=== PATIENT | female | born 1950 | race Two or more races ===

== ENCOUNTER 2020-07-08 11:58 | Outpatient (REF) | payer MEDICARE, SELFPAY ==
--- NOTE | 2020-07-08 12:06 | MM_ITS ---
EXAMINATION: MM SCREENING DIGITAL BREAST TOMOSYNTHESIS, BILATERAL CLINICAL INFORMATION: Screening. Asymptomatic. The lifetime risk of breast cancer based on the Tyrer-Cuzick Model is 4%. COMPARISON: Mammography: 07/03/2019, 06/20/2018 TECHNIQUE: Digital breast tomosynthesis is performed in both the craniocaudal and mediolateral oblique views along with computer-aided detection (CAD). Synthesized 2D images are generated from the tomosynthesis. FINDINGS: The breasts are almost entirely fatty (ACR BI-RADS breast composition Category a). There are no significant masses, abnormal calcifications, or other abnormalities. Parenchymal pattern is similar to prior studies. Background stromal densities are stable. No significant changes. IMPRESSION: No mammographic evidence of malignancy. ASSESSMENT: BI-RADS 1: Negative RECOMMENDATION: Routine annual mammography screening. This patient's information was entered into a reminder system with a target due date for their next mammogram.
== END 2020-07-08 11:59 | disposition home or self-care (01) ==
LOC: HO.MAMMO 11:58
PROVIDERS: PCP Internal Medicine; Visit Provider Internal Medicine
DX: Z12.31 Encounter for screening mammogram for malignant neoplasm of breast (principal)
CPT/HCPCS: 77063; 77067; 78014

== ENCOUNTER 2020-12-21 07:02 | Day surgery (SDC) | payer MEDICARE, MEDICAID, SELFPAY ==
[2020-10-27 10:29] VITALS: BMI 32.1
--- NOTE | 2020-11-01 08:36 | HO.ANESPROP2 ---
HPI - Anesthesia Eval Consult details Narrative: 70yo F for Colonoscopy PMFSH Past Medical History Medical History (Updated 11/01/20 @ 08:37 by Tianna Todd) Anxiety Depression Diabetes mellitus Elevated cholesterol GERD (gastroesophageal reflux disease) HTN (hypertension) Osteoarthritis Osteoporosis Peripheral neuropathy Family History Family History (Updated 09/06/20 @ 11:10 by Michelle Hinojosa CMA) Father No problems noted. Mother No problems noted. Surgical History Surgical History (Updated 09/06/20 @ 11:09 by Michelle Hinojosa CMA) History of colonoscopy Hx of cholecystectomy Hx of endoscopy Social History Social History (Updated 10/27/20 @ 10:29 by Kristie Zamora) Alcohol intake: never Smoking Status: Never smoker Meds Allergies Allergy/AdvReac Type Severity Reaction Status Date / Time metronidazole Allergy Unknown Unknown Verified 10/27/20 10:29 Home Medications Medication Instructions Recorded Confirmed Type acetaminophen 325 mg capsule 650 mg PO Q6H PRN 09/06/20 10/27/20 History calcium carbonate 500 mg (1,250 1 tab PO DAILY 09/06/20 10/27/20 History mg)-vitamin D3 200 unit tablet glipizide 10 mg tablet 20 mg PO BID tab 09/06/20 10/27/20 History hydroxyzine HCl 50 mg tablet 50 mg PO BID 09/06/20 10/27/20 History insulin detemir U-100 100 unit/mL 34 unit SUBCUT BEDTIME ml 09/06/20 10/27/20 History (3 mL) subcutaneous pen lisinopril 20 2 tab PO DAILY tab 09/06/20 10/27/20 History mg-hydrochlorothiazide 12.5 mg tablet montelukast 10 mg tablet 10 mg PO BEDTIME 09/06/20 10/27/20 History pioglitazone 15 mg tablet 15 mg PO DAILY 09/06/20 10/27/20 History Exam Exam Date and Time: November 01, 2020 0836 Height,Weight and Vital Signs: Height 5 ft 1 in Weight 77.111 kg Assessment and Plan Assessment Anesthesia Assessment: Chart Reviewed
--- NOTE | 2020-12-20 09:35 | HO.ANESPROP2 ---
Documented by User: Tianna Todd 12/20/20 09:36 HPI - Anesthesia Eval Consult details Narrative: 70yo F for Colonoscopy PMFSH Past Medical History Medical History Anxiety Depression Diabetes mellitus Elevated cholesterol GERD (gastroesophageal reflux disease) HTN (hypertension) Osteoarthritis Osteoporosis Peripheral neuropathy Family History Family History Father No problems noted. Mother No problems noted. Surgical History Surgical History History of colonoscopy Hx of cholecystectomy Hx of endoscopy Social History Social History Alcohol intake: never Smoking Status: Never smoker Use of substances other than those prescribed or required for medical reasons: No Advance Directives: No Advance Directives Information Provided: No Advance Directives on File: No Meds Allergies Allergy/AdvReac Type Severity Reaction Status Date / Time metronidazole Allergy Unknown Unknown Verified 10/27/20 10:29 Home Medications Medication Instructions Recorded Confirmed Last Taken Type acetaminophen 325 mg capsule 650 mg PO Q6H PRN 09/06/20 10/27/20 Unknown History calcium carbonate 500 mg (1,250 1 tab PO DAILY 09/06/20 10/27/20 Unknown History mg)-vitamin D3 200 unit tablet glipizide 10 mg tablet 20 mg PO BID tab 09/06/20 10/27/20 Unknown History hydroxyzine HCl 50 mg tablet 50 mg PO BID 09/06/20 10/27/20 Unknown History insulin detemir U-100 100 unit/mL 34 unit SUBCUT BEDTIME ml 09/06/20 10/27/20 Unknown History (3 mL) subcutaneous pen lisinopril 20 2 tab PO DAILY tab 09/06/20 10/27/20 Unknown History mg-hydrochlorothiazide 12.5 mg tablet montelukast 10 mg tablet 10 mg PO BEDTIME 09/06/20 10/27/20 Unknown History pioglitazone 15 mg tablet 15 mg PO DAILY 09/06/20 10/27/20 Unknown History Exam Exam Date and Time: December 20, 2020 0935 Height,Weight and Vital Signs: Height 5 ft 1 in Weight 77.111 kg Assessment and Plan Assessment Anesthesia Assessment: Chart Reviewed Documented by User: Stuart Delgado 12/21/20 08:33 [facility] Past Medical History Medical History Anxiety Depression Diabetes mellitus Elevated cholesterol GERD (gastroesophageal reflux disease) HTN (hypertension) Osteoarthritis Osteoporosis Peripheral neuropathy Family History Family History Father No problems noted. Mother No problems noted. Surgical History Surgical History History of colonoscopy Hx of cholecystectomy Hx of endoscopy Social History Social History Alcohol intake: never Smoking Status: Never smoker Use of substances other than those prescribed or required for medical reasons: No Advance Directives: No Advance Directives Information Provided: No Advance Directives on File: No Meds Allergies Allergy/AdvReac Type Severity Reaction Status Date / Time metronidazole Allergy Unknown Unknown Verified 10/27/20 10:29 Home Medications Medication Instructions Recorded Confirmed Last Taken Type acetaminophen 325 mg capsule 650 mg PO Q6H PRN 09/06/20 10/27/20 Unknown History calcium carbonate 500 mg (1,250 1 tab PO DAILY 09/06/20 10/27/20 Unknown History mg)-vitamin D3 200 unit tablet glipizide 10 mg tablet 20 mg PO BID tab 09/06/20 10/27/20 Unknown History hydroxyzine HCl 50 mg tablet 50 mg PO BID 09/06/20 10/27/20 Unknown History insulin detemir U-100 100 unit/mL 34 unit SUBCUT BEDTIME ml 09/06/20 10/27/20 Unknown History (3 mL) subcutaneous pen lisinopril 20 2 tab PO DAILY tab 09/06/20 10/27/20 Unknown History mg-hydrochlorothiazide 12.5 mg tablet montelukast 10 mg tablet 10 mg PO BEDTIME 09/06/20 10/27/20 Unknown History pioglitazone 15 mg tablet 15 mg PO DAILY 09/06/20 10/27/20 Unknown History Exam Airway Mallampati Class: II TM Dist: >3cm Neck ROM: Full Loose/Missing/Broken Teeth: Yes (Upper front missing, many loose) Heart: [id number] Lungs: cta b/l Assessment and Plan Assessment Anesthesia Assessment: Anesthesia Plan Discussed, PAT Visit and Chart Reviewed Final Anesthetic Review NPO: Yes ASA Class: III Final Preanesthetic Review: No Changes in Pt Med Stat, Meds/Allgs Chart Reviewed, Consent Obtained/Reviewed and Anes Risks/Benef Reviewed Patient Risk: Intermediate Procedure Risk: Low Assessment/Block/Sedation in SS: Assess/Block/Sedation-SS Anesthetic Plan Anesthetic Plan: MAC: and Agree w/ Assess. and Plan Disposition: Standard PACU
[2020-12-21 07:34] LABS: Glucose, Whole Blood 118 mg/dL (60-115)
[2020-12-21 07:38] VITALS: BP 170/71; PULSE 61; RESP 16; TEMP 36.3; O2SAT 98
[2020-12-21] MEDS: Lactated Ringers 1,000 ML 100 ML IVCONT (07:43)
--- NOTE | 2020-12-21 08:42 | P.HPSUR_ITS ---
Pre-Procedural Eval Section B Chief Complaint: screening Details of Present Illness: Colon cancer screening #2 [id number] Covid-19 [place] Relevant Family History (Specify if Yes): No Relevant Social History: None Present Medications: see Short Stay Collaborative assessment Medical History: Significant History (Diabetes, Hypertension, Obesity; Hx of GERD) History of Previous Operations: Relevant previous surgery/procedure and date(s) (2001--colonoscopy-[facility], Diverticulosis; Cholecystectomy) Allergies: Allergies Allergy/AdvReac Type Severity Reaction Status Date / Time metronidazole Allergy Unknown Unknown Verified 10/27/20 10:29 Review of Systems Sugical H&P ROS: Negative: Constitution, Respiratory, Gastrointestinal and Endocrine (Diabetes) and Yes, Specify: Cardiovascular (HTN) Exam Surgical H&P Exam: Normal: HEENT, Normal: Heart, Normal: Lungs and Normal: E xtremities and Significant Findings: Abdomen (central obesity) Plan Diagnosis/Plan: Unchanged I have reviewed the history and physical and performed a pertinent physical examination on my patient. No changes have occurred unless specified.yes
--- NOTE | 2020-12-21 09:17 | PM.OP ---
Brief Operative Note Date of Service: 12/21/20 Pre-op diagnosis: Colon cancer screening Post-op diagnosis: other (Diverticulosis(L side)) Procedure: Colonoscopy Implants: NONE Surgeon: Ira Cleveland MD Anesthesia: MAC (Cuff,DIPLOMATIC COURIER) Estimated blood loss (mL): 0 Pathology: none sent Condition: stable Disposition: PACU
[2020-12-21 09:19] VITALS: BP 152/89; PULSE 55; RESP 20; TEMP 36.7; O2SAT 100
[2020-12-21 09:32] VITALS: BP 149/84; PULSE 56; RESP 16; TEMP 36.7; O2SAT 98
--- NOTE | 2020-12-21 10:03 | W.PM.OPN ---
Operative Note Operative Note Date of Service: 12/21/20 Narrative: Pre-op diagnosis: Colon cancer screening Post-op diagnosis: other (Diverticulosis(L side)) Procedure: Colonoscopy Implants: NONE Surgeon: Ira Cleveland MD Anesthesia: MAC (Cuff,[employer]) FINDINGS: LENARD--Decreased sphincter tone Scope introduced with no difficulty=angulation @ rectosigmoid and sigmoid --mild diverticulosis, Advanced descending, transverse, ascending colon into the cecum. (Mild extrinsic pressure due to left sided looping.) Appendiceal orifice seen, valve well visualized. PREP: GOOD with some areas fair requiring flushing and suctioning. Slow withdrawal good rotational views, no mucosal lesions seen. ARV clear. Estimated blood loss (mL): 0 Pathology: none sent Condition: stable Disposition: PACU PLAN: REPEAT COLON CANCER SCREENING 10 YEARS OR AGE 77.
== END 2020-12-21 10:03 | disposition home or self-care (01) ==
PROVIDERS: PCP Internal Medicine; Visit Provider Internal Medicine Gastroenterology
PROC: 0DJD8ZZ Inspection of Lower Intestinal Tract, Via Natural or Artificial Opening Endoscopic (ICD-10-PCS; CPT 45378; principal; 2020-12-21 08:20)
DX: Z12.11 Encounter for screening for malignant neoplasm of colon (principal); K57.30 Diverticulosis of large intestine without perforation or abscess without bleeding; K21.9 Gastro-esophageal reflux disease without esophagitis; I10 Essential (primary) hypertension; E11.42 Type 2 diabetes mellitus with diabetic polyneuropathy; M81.0 Age-related osteoporosis without current pathological fracture; Z79.4 Long term (current) use of insulin; Z79.899 Other long term (current) drug therapy; Z88.8 Allergy status to other drugs, medicaments and biological substances; Z90.49 Acquired absence of other specified parts of digestive tract
CPT/HCPCS: G0121; 82947

== ENCOUNTER 2021-03-17 13:24 | Emergency (ER) | payer MEDICARE, MEDICAID, SELFPAY ==
--- NOTE | ~2021-03-17 | XR_ITS ---
EXAMINATION: LEFT HAND AND WRIST. CLINICAL INFORMATION: Status post fall fall. COMPARISON: None TECHNIQUE: Left hand/wrist 4 views. FINDINGS: There is loss of PIP and DIP joint space with mild periarticular spurring DIP joint fifth digit. No visible acute fracture, dislocation or subluxation seen. The soft tissues are unremarkable. XR/XR hand wrist LT IMPRESSION: Mild degenerative changes PIP and DIP joints left hand. No visible acute fracture, dislocation or subluxation seen.
[2021-03-17 13:36] VITALS: BP 194/71; PULSE 60; RESP 18; TEMP 36.6; O2SAT 96; BMI 37.0
--- NOTE | 2021-03-17 14:09 | ED.EXTPRO ---
HPI - Extremity Problem General Chief complaint: Extremity Injury, Upper Stated complaint: fall - wrist pain Time Seen by Provider: 03/17/21 13:46 Source: patient Mode of arrival: ambulatory Limitations: no limitations History of Present Illness HPI Narrative: Patient presents to ED for left wrist pain. Patient states she is walking on the sidewalks and they were uneven and she tripped and stretched out her hand to break her fall. Patient denies hitting head or loss of consciousness. Patient denies being on any blood thinners. Patient states wrist pain on movement. patient denies any other trauam. Related Data Home Medications Medication Instructions Recorded Confirmed acetaminophen 325 mg capsule 650 mg PO Q6H PRN 09/06/20 10/27/20 calcium carbonate 500 mg (1,250 1 tab PO DAILY 09/06/20 10/27/20 mg)-vitamin D3 200 unit tablet glipizide 10 mg tablet 20 mg PO BID tab 09/06/20 10/27/20 hydroxyzine HCl 50 mg tablet 50 mg PO BID 09/06/20 10/27/20 insulin detemir U-100 100 unit/mL 34 unit SUBCUT BEDTIME ml 09/06/20 10/27/20 (3 mL) subcutaneous pen lisinopril 20 2 tab PO DAILY tab 09/06/20 10/27/20 mg-hydrochlorothiazide 12.5 mg tablet montelukast 10 mg tablet 10 mg PO BEDTIME 09/06/20 10/27/20 pioglitazone 15 mg tablet 15 mg PO DAILY 09/06/20 10/27/20 Previous Rx's Medication Instructions Recorded bisacodyl 5 mg tablet,delayed 10 mg PO ONCE 1 Days #2 tab 09/06/20 release polyethylene glycol 3350 17 17 g PO ONCE #238 g 09/06/20 gram/dose oral powder naproxen 500 mg PO BID PRN #20 tab 03/17/21 Allergies Allergy/AdvReac Type Severity Reaction Status Date / Time metronidazole Allergy Unknown Unknown Verified 10/27/20 10:29 Review of Systems Review of Systems: Yes all other systems are reviewed and are negative Constitutional: Constitutional: Reports as per HPI and Reports no additional constitutional complaints Eyes: Eyes: Reports as per HPI and Reports no additional eye complaints ENT: Reports system reviewed and no additional complaints, except as documented and Reports as per HPI Cardiovascular: Cardiovascular: Reports as per HPI and Reports no additional cardiovascular complaints Respiratory: Respiratory: Reports as per HPI and Reports no additional respiratory complaints Gastrointestinal: Gastrointestinal: Reports as per HPI and Reports no additional gastrointestinal complaints Genitourinary: Genitourinary: Reports no additional female genitourinary complaints and Reports as per HPI Musculoskeletal: Musculoskeletal: Reports no additional musculoskeletal complaints, Reports as per HPI and Reports arthralgias (left wrist pain) Neurologic: Reports system reviewed and no additional complaints, except as documented and Reports as per HPI Psychiatric: Psychiatric: Reports no additional psychiatric complaints and Reports as per HPI [facility] Past Medical History Medical History Anxiety Depression Diabetes mellitus Elevated cholesterol GERD (gastroesophageal reflux disease) HTN (hypertension) Osteoarthritis Osteoporosis Peripheral neuropathy Surgical History History of colonoscopy Hx of cholecystectomy Hx of endoscopy Family History Family History Father No problems noted. Mother No problems noted. Social History Social History Alcohol intake: never Advance Directives: No Advance Directives Information Provided: Yes Physical Exam Vital Signs: Vital Signs: Last Vital Signs Temp 98 F 03/17/21 13:36 Pulse 60 03/17/21 13:36 Resp 17 03/17/21 14:55 BP 194/71 H 03/17/21 13:36 Pulse Ox 96 03/17/21 13:36 Body Mass Index 37.0 Const: General: cooperative, healthy appearing, comfortable, no acute distress, well developed, alert, awake and Physically active Orientation/consciousness: patient oriented x3 HENMT: Head: Yes normal to inspection, Yes No palpable skull fracture present, Yes normocephalic, Yes atraumatic, No abrasion, No Acrocyanosis present, No Marquez's sign, No contusion, No cranial bruits, No hematoma, No laceration, No occipital foramen tenderness, No palpable skull fracture, No raccoon eyes, No scalp lesion, No scalp tenderness, No Temporal artery tenderness present and No periorbital ecchymosis Eyes: General: appearance normal, both eyes and all related structures Neck: Neck: Yes normal visual inspection, Yes full ROM, Yes no lymphadenopathy, Yes no meningeal signs, Yes trachea midline, Yes supple and No tender Chest: Chest palpation & inspection: normal inspection of the chest and normal palpation of entire chest wall Resp: Effort & Inspection: normal respiratory effort and able to speak in complete sentences Auscultation: clear to auscultation bilaterally Cardio: Jugular venous distension: no JVD Heart sounds: S1 normal heart sound present and S2 normal heart sound present GI: Inspection: Yes normal to inspection and No abdominal wall ecchymosis Palpation (GI): Soft to palpation, not firm, nontender, no guarding and not rigid : General: No CVA tenderness and Yes no CVA tenderness Back/Spine/Pelvis: Back: no CVA tenderness, No CVA tenderness and No back tenderness Skin: General skin exam: no rashes or lesions noted and elasticity normal Neuro: General: patient oriented x3, gait normal, no meningeal signs and CN's II-XI intact bilaterally Cranial nerves: Yes CN's II-XII intact bilaterally Extrem: General: Yes normal to inspection and Yes full ROM Hand/finger images: 1. Ecchymosis and tenderness in the area. Patient able to flex and extend hand but with pain. Negative for obvious deformity. Negative for finger deformity or swelling. Rest of extremity normal. Capillary refills intact. Radial pulse intact. Motor/neuro exam intact. Negative for redness. Psych: Appearance: grossly normal, well kempt and not disheveled Course Course Course Narrative: Patient sent for hand x-ray and given Motrin. Reevaluation(s) Reevaluation #1: X-ray negative for any fractures. Patient was placed in Crescencio wrap and discharged with NSAIDs. Contusion. Wrist sprain Time: 14:41 MDM - Extremity (Nontraumatic) MDM Narrative Medical decision making narrative: Contusion. Wrist sprain Discharge Plan Discharge Clinical Impression: Sprain and strain of wrist, Contusion Patient Disposition: Home, Self-Care Instructions: Contusion in Children (ED), Wrist Sprain (ED) Additional Instructions: Regrese al servicio de urgencias si empeora el dolor de mu?eca / mano, hinchaz?n, enrojecimiento, secreci?n de pus, mal olor, fiebre, escalofr?os, decoloraci?n de los dedos de color sarah azulado, piel caliente, piel fr?a, hinchaz?n de la extremidad superior, dolor de pecho, dificultad para respirar , o cualquier otro s?ntoma preocupante. Prescriptions: New naproxen 500 mg tablet 500 mg PO BID PRN (Reason: pain) Qty: 20 RF: 0 No Action acetaminophen [Tylenol] 325 mg capsule 650 mg PO Q6H PRN (Reason: Pain) RF: 0 calcium carbonate-vitamin D3 [Calcium 500 + D] 500 mg(1,250mg) -200 unit tablet 1 tab PO DAILY RF: 0 montelukast [Singulair] 10 mg tablet 10 mg PO BEDTIME RF: 0 lisinopril-hydrochlorothiazide 20-12.5 mg tablet 2 tab PO DAILY RF: 0 glipizide 10 mg tablet 20 mg PO BID RF: 0 pioglitazone [Actos] 15 mg tablet 15 mg PO DAILY RF: 0 hydroxyzine HCl 50 mg tablet 50 mg PO BID RF: 0 Levemir FlexTouch U-100 Insuln 100 unit/mL (3 mL) insulin pen 34 unit subcut BEDTIME RF: 0 bisacodyl [Dulcolax (bisacodyl)] 5 mg tablet,delayed release (DR/EC) 10 mg PO ONCE 1 Days Qty: 2 RF: 0 polyethylene glycol 3350 [Miralax] 17 gram/dose powder 17 g PO ONCE Qty: 238 RF: 0 Referrals: Nasrin Alvarenga MD [Primary Care Provider] - 2 days ( wrist contusion/ sprain. X-ray negative for fracture) Interventions: ED Discharge Assessment Last Done: 03/17/21 14:56 Discharge Date/Time: 03/17/21 14:56 Print Language: Yoruba
[2021-03-17] MEDS: Ibuprofen 800 MG TABLET PO (14:14)
[2021-03-17 14:55] VITALS: RESP 17
== END 2021-03-17 14:56 | disposition home or self-care (01) ==
PROVIDERS: Emergency Provider Emergency Medicine; PCP Internal Medicine
DX: S63.502A Unspecified sprain of left wrist, initial encounter (principal); S60.212A Contusion of left wrist, initial encounter; E11.9 Type 2 diabetes mellitus without complications; I10 Essential (primary) hypertension; W01.0XXA Fall on same level from slipping, tripping and stumbling without subsequent striking against object, initial encounter; Y93.01 Activity, walking, marching and hiking; Y92.480 Sidewalk as the place of occurrence of the external cause; Y99.9 Unspecified external cause status; Z79.4 Long term (current) use of insulin; Z79.899 Other long term (current) drug therapy
CPT/HCPCS: 73110; 73130; 99283; 99284

== ENCOUNTER 2023-04-17 07:23 | Outpatient (REF) | payer MEDICARE, MEDICAID, SELFPAY ==
--- NOTE | ~2023-04-17 | MM_ITS ---
EXAMINATION: MM SCREENING DIGITAL BREAST TOMOSYNTHESIS, BILATERAL CLINICAL INFORMATION: Screening. Asymptomatic. The lifetime risk of breast cancer based on the Tyrer-Cuzick Model is 4.1%. COMPARISON: Mammography: 07/08/2020, and exams dating back to 2011. TECHNIQUE: Digital breast tomosynthesis is performed in both the craniocaudal and mediolateral oblique views along with computer-aided detection (CAD). Synthesized 2D images are generated from the tomosynthesis. FINDINGS: The breasts are almost entirely fatty (ACR BI-RADS breast composition Category a). There are no significant masses, abnormal calcifications, or other abnormalities. Scattered background stromal and parenchymal densities are stable. The parenchymal pattern is unchanged from prior exams. No findings suspicious for malignancy. MM/MM tomosynthesis screening BI IMPRESSION: No mammographic evidence of malignancy. ASSESSMENT: BI-RADS BI-RADS 1 - Negative RECOMMENDATION: Routine annual mammography screening. 1 year F/U This examination should not preclude the clinical evaluation of a suspicious palpable abnormality. This patient's information was entered into a reminder system with a target due date for their next mammogram.
== END 2023-04-17 07:24 | disposition home or self-care (01) ==
LOC: HO.MAMMO 07:23
PROVIDERS: PCP Internal Medicine; Visit Provider Internal Medicine
DX: Z12.31 Encounter for screening mammogram for malignant neoplasm of breast (principal)
CPT/HCPCS: 77063; 77067

== ENCOUNTER → 2023-04-17 07:45 | Outpatient (BNV) | payer MEDICARE, MEDICAID, SELFPAY | PROVIDERS: PCP Internal Medicine; Visit Provider Radiology Diagnostic Radiology | DX: Z12.31 Encounter for screening mammogram for malignant neoplasm of breast (principal) | CPT/HCPCS: 77063; 77067 ==

== ENCOUNTER 2023-07-03 18:29 | Outpatient (REF) | payer MEDICARE, MEDICAID, SELFPAY ==
[2023-07-03 22:00] LABS: Influenza A PCR NEGATIVE (Negative); Influenza B PCR NEGATIVE (Negative); Resp Syncy Virus RNA Qual PCR NEGATIVE (Negative); SARS COV2 PCR INHOUSE NEGATIVE (Negative)
== END 2023-07-03 18:30 | disposition home or self-care (01) ==
LOC: HO.HHCLNP 18:29
PROVIDERS: Visit Provider Emergency Medicine
DX: R68.89 Other general symptoms and signs (principal); Z11.52 Encounter for screening for COVID-19; Z20.828 Contact with and (suspected) exposure to other viral communicable diseases
CPT/HCPCS: 0241U; 87070; 87086

== ENCOUNTER 2023-09-23 12:07 | Emergency (ER) | payer MEDICARE, MEDICAID, SELFPAY ==
--- NOTE | ~2023-09-23 | XR_ITS ---
EXAMINATION: XR CHEST CLINICAL INFORMATION: Chest pain COMPARISON: Chest 09/18/2019. TECHNIQUE: 2 views of the chest were obtained. FINDINGS: Normal appearance of the cardiomediastinal structures. No effusions or pneumothoraces. Normal pattern of pulmonary vasculature. No focal pulmonary consolidation. Convex rightward curvature of the upper thoracic spine and convex leftward curvature of the lower thoracic spine grossly unchanged compared with 09/18/2019. Cholecystectomy clips. XR/XR chest 2V IMPRESSION: 1. No acute cardiopulmonary abnormalities. Lungs clear. 2. Thoracic scoliosis grossly unchanged compared with 09/18/2019.
--- NOTE | 2023-09-23 12:09 | ECG_ITS ---
Test Reason : CHEST PAIN Blood Pressure : / mmHG Vent. Rate : 061 BPM Atrial Rate : 061 BPM P-R Int : 128 ms QRS Dur : 074 ms QT Int : 400 ms P-R-T Axes : 015 -18 027 degrees QTc Int : 402 ms Normal sinus rhythm Minimal voltage criteria for LVH, may be normal variant ( R in aVL ) Borderline ECG When compared with ECG of 21-FEB-2015 09:46, Nonspecific T wave abnormality no longer evident in Anterolateral leads Referred By: Generic ED Physician Electronically Signed By:BRANDAN CASTAÑEDA MD
[2023-09-23 12:18] VITALS: BP 155/66; PULSE 64; RESP 18; TEMP 36.7; O2SAT 99; BMI 39.0
[2023-09-23 12:53] LABS: IDNOW Serial# 08D9AD1C; Strep A Nucleic Acid Negative (Negative)
[2023-09-23 12:55] LABS: COVID-19 Test Negative (Negative); IDNOW Serial# 58CA691E; IDNOW Serial# 9DB6401D; Influenza A Negative (Negative); Influenza B2 Negative (Negative)
--- NOTE | 2023-09-23 14:47 | ED_ITS ---
HPI - General Adult General Chief complaint: Upper Respiratory Symptoms Stated complaint: Chest pain Time Seen by Provider: 09/23/23 13:47 Source: patient Mode of arrival: ambulatory Limitations: no limitations History of Present Illness HPI narrative: 73 year old female with pmhx significant for GERD, HTN, anxiety, depression, diabetes, presents to the ED today for evaluation of cough x6 days. Cough is productive of white colored sputum. Reports chest discomfort with coughing however denies pain. Denies fever, chills, ear pain, sore throat, shortness of breath, hemoptysis, palpitations, abdominal pain, N/V, diarrhea, constipation, LE swelling or pain. Denies known sick contacts. Denies recent travel or long car rides. Related Data Home Medications Medication Instructions Recorded Confirmed acetaminophen 325 mg capsule 650 mg PO Q6H PRN Pain 09/06/20 10/27/20 (Tylenol) calcium carbonate 500 mg-vitamin 1 tab PO DAILY 09/06/20 10/27/20 D3 5 mcg (200 unit) tablet (Calcium 500 + D) glipizide 10 mg tablet 20 mg PO BID 09/06/20 10/27/20 hydroxyzine HCl 50 mg tablet 50 mg PO BID 09/06/20 10/27/20 insulin detemir U-100 100 unit/mL 34 unit subcut BEDTIME 09/06/20 10/27/20 (3 mL) subcutaneous pen (Levemir FlexTouch U-100 Insulin) lisinopril 20 2 tab PO DAILY 09/06/20 10/27/20 mg-hydrochlorothiazide 12.5 mg tablet montelukast 10 mg tablet 10 mg PO BEDTIME 09/06/20 10/27/20 (Singulair) pioglitazone 15 mg tablet (Actos) 15 mg PO DAILY 09/06/20 10/27/20 Previous Rx's Medication Instructions Recorded bisacodyl 5 mg tablet,delayed 10 mg (2 x 5 mg) PO ONCE 1 day #2 09/06/20 release (Dulcolax (bisacodyl)) tabs polyethylene glycol 3350 17 17 g PO ONCE #238 grams 09/06/20 gram/dose oral powder (Miralax) naproxen 500 mg tablet 500 mg PO BID PRN pain #20 tabs 03/17/21 benzonatate 100 mg capsule 100 mg PO BID PRN cough #20 caps 09/23/23 prednisone 20 mg tablet 20 mg PO DAILY 5 days #5 tabs 09/23/23 Allergies Allergy/AdvReac Type Severity Reaction Status Date / Time metronidazole Allergy Unknown Unknown Verified 10/27/20 10:29 Review of Systems Review of Systems: Constitutional: No fever, chills, fatigue, night sweats, weight changes ENT/Mouth: No ear pain, hearing loss, nasal congestion, sinus pain, rhinorrhea, sore throat Eyes: No eye pain, swelling, redness, vision changes, discharge Cardio: No chest pain, palpitations, RAINES, orthopnea, peripheral edema Pulm: No SOB, +cough, +sputum, No wheezing, dyspnea, hemoptysis GI: No nausea, vomiting, hematemesis, abdominal pain, diarrhea, constipation, hematochezia, melena : No irregular bleeding, dysuria, frequency, urgency, hesitancy, hematuria MSK: No back pain, neck pain, joint pain, myalgias Skin: No lesions, rashes Neuro: No weakness, numbness, paresthesias, LOC, dizziness, headache All other systems reviewed and are negative. [facility] Past Medical History Attestation statement: The following information was validated with the patient. Source: old records reviewed and nursing notes reviewed Medical History Anxiety Depression Diabetes mellitus Elevated cholesterol GERD (gastroesophageal reflux disease) HTN (hypertension) Osteoarthritis Osteoporosis Peripheral neuropathy Surgical History History of colonoscopy Hx of cholecystectomy Hx of endoscopy Family History Family History Father No problems noted. Mother No problems noted. Social History Social History Alcohol intake: never Advance Directives: No Advance Directives Information Provided: Yes Physical Exam ED Vital Signs: Vital Signs - 24 hr 09/23/23 12:18 09/23/23 15:33 Temperature 98.1 F Pulse Rate 64 66 Respiratory Rate 18 22 H Blood Pressure 155/66 H Pulse Oximetry 99 Oxygen Delivery Method Room Air BMI result Body Mass Index 39.0 Vital signs notable for hypertension. Afebrile. Const General: cooperative, healthy appearing, comfortable, no acute distress, alert and awake Orientation/consciousness: patient oriented x3 Limitations: no limitations HENMT Other: + posterior oropharynx without erythema or edema. No tonsillar exudates. No peritonsillar masses. Uvula midline. Controlling secretions and speaking complete sentences. Head: Yes normal to inspection Ears: hearing grossly normal bilaterally, external ears normal, TM's normal bilaterally, EAC's normal, mastoids normal and no periauricular adenopathy General nose exam: Normal external nose present and No nasal discharge present Eyes General: appearance normal, both eyes and all related structures Neck Neck: Yes normal visual inspection, Yes full ROM, Yes no lymphadenopathy and Yes no meningeal signs Resp Other: + bilateral expiratory wheezing Effort & Inspection: normal respiratory effort, able to speak in complete sentences, no respiratory distress, no tripod positioning and no use of accessory muscles Auscultation: clear to auscultation bilaterally Cardio Rate: regular rate Rhythm: regular rhythm Peripheral pulses: radial pulses present GI Inspection: Yes normal to inspection Palpation (GI): Soft to palpation and nontender Skin General skin exam: no rashes or lesions noted Neuro General: patient oriented x3, gait normal, moves all extremities and no meningeal signs Extrem General: Yes normal to inspection Course Course Course Narrative: 1545-- serology negative for COVID, flu, strep throat. Chest x-ray unremarkable. EKG normal. Lungs CTA b/l after albuterol treatment. Patient likely has a viral upper respiratory infection. Will send prednisone to pharmacy along with Praful Dempsey for cough. Antibiotics are not warranted at this time. Discussed worrisome signs and symptoms and when to return to the ED. Patient has remained stable throughout ED visit today. All questions answered at this time. Patient is agreeable with disposition and stable for discharge. Medications Administered Discontinued Medications Generic Name Dose Route Start Last Admin Trade Name Freq PRN Reason Stop Dose Admin Albuterol/Ipratropium 3 ml 09/23/23 15:27 09/23/23 15:33 Albuterol/Iprat 2.5/0.5mg 3 Ml Ampul.Neb INHALE 09/23/23 15:28 3 ml ONCE ONE Administration Medical Decision Making Medical Decision Making MDM Narrative: 73 year old female with pmhx significant for GERD, HTN, anxiety, depression, diabetes, presents to the ED today for evaluation of cough x6 days. Vital signs notable for slight hypertension, otherwise unremarkable. Afebrile. Not hypoxic. Not toxic appearing and in no acute distress. Posterior oropharynx within normal limits. Lungs with bilateral expiratory wheezes. Coughing on exam. No signs of acute respiratory distress. Clinical concern for viral syndrome, pneumonia. Unlikely strep throat, mono, pleural effusion, pneumothorax, pulmonary embolism, [employer], retropharyngeal abscess, epiglottitis. Plan for serology, chest x-ray and re-evaluation. Differential Diagnosis Differential Diagnoses: The differential diagnosis associated with the presentation includes As above. Admission/Observation Not indicated. Lab Data MDM Lab Attestation statement: I reviewed the patient's lab results. As above. Labs: Lab Results 09/23/23 Range/Units 12:28 COVID-19 (ANGEL) Negative (Negative) COVID-19 Clin Com See Note Influenza Type A (NATASHA) Negative (Negative) Influenza Type B (NATASHA) Negative (Negative) Influenza A & B Note See Note S. pyogenes GrpA NATASHA Negative (Negative) Independent Interpretation I performed an independent interpretation of an: EKG and Plain X-Ray Interpretation: EKG showing NSR with a rate of 61 bpm, QT 400, QTC 402, LVH secondary to high blood pressure, no acute ischemic changes or ST elevations. Chest x-ray without consolidation or infiltrate, agree with radiologist's interpretation. Radiology Impression Discussion of test interpretation with radiology: I have reviewed the radiologist's reading. Radiologist Impression: XR chest 2V IMPRESSION: 1. No acute cardiopulmonary abnormalities. Lungs clear. 2. Thoracic scoliosis grossly unchanged compared with 09/18/2019. External Record Review External record reviewed: Inpatient record Prescription Management I considered prescription management with: Other (steroid, antitussive) Chronic Conditions Patient?s care impacted by: Diabetes and Hypertension Social Determinants Patient?s care significantly limited by Social Determinants of Health including: Other Social Determinant of Health Critical Care Time Critical Care Time Critical Care Time: No Discharge Plan Discharge Clinical Impression: Upper respiratory infection Patient Disposition: Home, Self-Care Instructions: Upper Respiratory Infection (ED), Viral Syndrome (ED) Additional Instructions: You tested negative for covid, flu, strep throat. Your chest xray is normal. Your EKG is normal. You received a breathing treatment in ED today. Prednisone is a steroid that has been sent to your pharmacy. Take this for the next 5 days. Tessalon perles have been sent to your pharmacy. Takes these as needed for cough. Please follow-up with your primary care provider. If symptoms persist or worsen please return to the emergency department. The case of an emergency call 911. Prescriptions: New benzonatate 100 mg capsule 100 mg PO BID PRN (Reason: cough) Qty: 20 0RF prednisone 20 mg tablet 20 mg PO DAILY 5 Days Qty: 5 0RF No Action naproxen 500 mg tablet 500 mg PO BID PRN (Reason: pain) Qty: 20 0RF acetaminophen [Tylenol] 325 mg capsule 650 mg PO Q6H PRN (Reason: Pain) calcium carbonate-vitamin D3 [Calcium 500 + D] 500 mg(1,250mg) -200 unit tablet 1 tab PO DAILY montelukast [Singulair] 10 mg tablet 10 mg PO BEDTIME lisinopril-hydrochlorothiazide 20-12.5 mg tablet 2 tab PO DAILY glipizide 10 mg tablet 20 mg PO BID pioglitazone [Actos] 15 mg tablet 15 mg PO DAILY hydroxyzine HCl 50 mg tablet 50 mg PO BID Levemir FlexTouch U100 Insulin 100 unit/mL (3 mL) insulin pen 34 unit subcut BEDTIME bisacodyl [Dulcolax (bisacodyl)] 5 mg tablet,delayed release (DR/EC) 10 mg PO ONCE 1 Days Qty: 2 0RF Rx Instructions: take 2 tabs at noon the day before your colonoscopy polyethylene glycol 3350 [Miralax] 17 gram/dose powder 17 g PO ONCE Qty: 238 0RF Rx Instructions: As directed by gastroenterology department at [facility] Referrals: Nasrin Alvarenga MD [Primary Care Provider] - Interventions: ED Discharge Assessment Last Done: 09/23/23 15:56 Discharge Date/Time: 09/23/23 16:10
[2023-09-23 15:33] VITALS: PULSE 66; RESP 22; O2SAT 100
[2023-09-23] MEDS: Albuterol/Iprat 2.5/0.5MG 3 ML AMPUL.NEB INHALE (15:33)
== END 2023-09-23 16:10 | disposition home or self-care (01) ==
PROVIDERS: Emergency Provider Student in an Organized Health Care Education/Training Program; PCP Internal Medicine
DX: J06.9 Acute upper respiratory infection, unspecified (principal); I10 Essential (primary) hypertension; E11.9 Type 2 diabetes mellitus without complications; Z11.52 Encounter for screening for COVID-19
CPT/HCPCS: 71046; 87502; 87635; 87651; 93005; 94640; 99284

== ENCOUNTER → 2023-09-23 12:09 | Outpatient (BNV) | payer MEDICARE, MEDICAID, SELFPAY | PROVIDERS: Emergency Provider Student in an Organized Health Care Education/Training Program; PCP Internal Medicine; Visit Provider Internal Medicine Cardiovascular Disease | DX: R07.9 Chest pain, unspecified (principal) | CPT/HCPCS: 93010 ==

== ENCOUNTER 2023-11-21 13:44 | Outpatient (REF) | payer MEDICARE, MEDICAID, SELFPAY | END 2023-11-21 13:45 | disposition home or self-care (01) | LOC: HO.HHCLNP 13:44 | PROVIDERS: Visit Provider Internal Medicine | DX: R39.9 Unspecified symptoms and signs involving the genitourinary system (principal) | CPT/HCPCS: 87086; 87147 ==

== ENCOUNTER 2024-05-21 12:06 | Outpatient (REF) | payer MEDICARE, MEDICAID, SELFPAY ==
--- NOTE | ~2024-05-21 | MM_ITS ---
EXAMINATION: MM SCREENING DIGITAL BREAST TOMOSYNTHESIS, BILATERAL CLINICAL INFORMATION: Screening. Asymptomatic. COMPARISON: Mammography: Comparison made with prior available imaging. TECHNIQUE: Digital breast tomosynthesis is performed in both the craniocaudal and mediolateral oblique views along with computer-aided detection (CAD). Synthesized 2D images are generated from the tomosynthesis. FINDINGS: There are scattered areas of fibroglandular density (ACR BI-RADS breast composition Category b). There are no significant masses, abnormal calcifications, or other abnormalities. MM/MM tomosynthesis screening BI IMPRESSION: No mammographic evidence of malignancy. ASSESSMENT: BI-RADS BI-RADS 1 - Negative RECOMMENDATION: Routine annual mammography screening. 1 year F/U This examination should not preclude the clinical evaluation of a suspicious palpable abnormality. This patient's information was entered into a reminder system with a target due date for their next mammogram. Electronically signed by: Giuliana Davis DO 06/18/2024 09:12 PM EDT
== END 2024-05-21 12:07 | disposition home or self-care (01) ==
LOC: HO.MAMMO 12:06
PROVIDERS: PCP Internal Medicine; Visit Provider Internal Medicine
DX: Z12.31 Encounter for screening mammogram for malignant neoplasm of breast (principal)
CPT/HCPCS: 77063; 77067

== ENCOUNTER → 2024-05-21 12:15 | Outpatient (BNV) | payer MEDICARE, MEDICAID, SELFPAY | PROVIDERS: PCP Internal Medicine; Visit Provider Internal Medicine | DX: Z12.31 Encounter for screening mammogram for malignant neoplasm of breast (principal) | CPT/HCPCS: 77063; 77067 ==

== ENCOUNTER 2024-09-23 22:38 | Emergency (ER) | payer MEDICARE, MEDICAID, SELFPAY ==
[2024-09-23 22:46] VITALS: BP 124/51; PULSE 69; RESP 14; TEMP 36.4; O2SAT 96; BMI 37.2
--- NOTE | 2024-09-23 23:54 | ED.FEMALEGU ---
HPI - Female Genitourinary General Chief complaint: Urogenital-Female Stated complaint: ?UTI Time Seen by Provider: 09/23/24 23:55 Source: patient, family and educational specialist Mode of arrival: ambulatory Limitations: no limitations History of Present Illness ED Provider: DR. Brcue HPI Narrative: 74-year-old female walked into the emergency department for evaluation of dysuria and frequency urination since yesterday, associated with chills but no fever, no hematuria, no nausea, no vomiting, no back pain. History of hysterectomy and cholecystectomy last bowel movement was this morning no blood in the urine or the stool. Related Data Home Medications ?Medication ?Instructions ?Recorded ?Confirmed acetaminophen 325 mg capsule 650 mg PO Q6H PRN Pain 09/06/20 10/27/20 (Tylenol) calcium 500 mg (as 1 tab PO DAILY 09/06/20 10/27/20 carbonate)-vitamin D3 5 mcg (200 unit) tablet (Calcium 500 + D) glipizide 10 mg tablet 20 mg PO BID 09/06/20 10/27/20 hydroxyzine HCl 50 mg tablet 50 mg PO BID 09/06/20 10/27/20 insulin detemir U-100 100 unit/mL 34 unit subcut BEDTIME 09/06/20 10/27/20 (3 mL) subcutaneous pen (Levemir FlexTouch U-100 Insulin) lisinopril 20 2 tab PO DAILY 09/06/20 10/27/20 mg-hydrochlorothiazide 12.5 mg tablet montelukast 10 mg tablet 10 mg PO BEDTIME 09/06/20 10/27/20 (Singulair) pioglitazone 15 mg tablet (Actos) 15 mg PO DAILY 09/06/20 10/27/20 Previous Rx's ?Medication ?Instructions ?Recorded bisacodyl 5 mg tablet,delayed 10 mg (2 x 5 mg) PO ONCE 1 day #2 09/06/20 release (Dulcolax (bisacodyl)) tabs polyethylene glycol 3350 17 17 g PO ONCE #238 grams 09/06/20 gram/dose oral powder (Miralax) naproxen 500 mg tablet 500 mg PO BID PRN pain #20 tabs 03/17/21 benzonatate 100 mg capsule 100 mg PO BID PRN cough #20 caps 09/23/23 prednisone 20 mg tablet 20 mg PO DAILY 5 days #5 tabs 09/23/23 cefuroxime axetil 500 mg tablet 500 mg PO BID #20 tabs 09/24/24 phenazopyridine 100 mg tablet 100 mg PO TID #6 tabs 09/24/24 (Pyridium) Allergies Allergy/AdvReac Type Severity Reaction Status Date / Time metronidazole Allergy Unknown Unknown Verified 09/23/24 22:47 Review of Systems Review of Systems: All other systems are reviewed and are negative Constitutional: Reports as per HPI and Reports no additional constitutional complaints Eyes: Reports as per HPI and Reports no additional eye complaints Reports system reviewed and no additional complaints, except as documented Cardiovascular: Reports as per HPI and Reports no additional cardiovascular complaints Respiratory: Reports as per HPI and Reports no additional respiratory complaints Gastrointestinal: Reports as per HPI and Reports no additional gastrointestinal complaints Genitourinary: Reports no additional female genitourinary complaints Musculoskeletal: Reports no additional musculoskeletal complaints Skin/Breast: Reports system reviewed and no additional complaints, except as docu Psychiatric: Reports no additional psychiatric complaints Endocrine: Reports no additional endocrine complaints Hematologic/Lymphatic: Reports no additional hematologic/lymphatic complaints Allergic/Immunologic: Reports no additional allergic/immunologic complaints Reports system reviewed and no additional complaints, except as documented and Reports Abnormal speech present REPLACED BY [facility] Past Medical History Medical History Osteoporosis GERD (gastroesophageal reflux disease) Peripheral neuropathy Osteoarthritis Anxiety Depression Elevated cholesterol HTN (hypertension) Diabetes mellitus Surgical History Hx of cholecystectomy Hx of endoscopy History of colonoscopy Family History Family History Father No problems noted. Mother No problems noted. Social History Social History Alcohol intake: never Advance Directives: No Advance Directives Information Provided: Yes Do you have a plan to hurt others: No Plan Physical Exam Vital Signs: Vital Signs: Last Vital Signs Temp 97.5 F 09/23/24 22:46 Pulse 69 09/23/24 22:46 Resp 14 09/23/24 22:46 BP 124/51 L 09/23/24 22:46 Pulse Ox 96 09/23/24 22:46 O2 Del Method Room Air 09/23/24 22:46 BMI result Body Mass Index 37.2 Vital signs have been reviewed and appear to be correct. Blood pressure elevated. Heart rate normal. Respiratory rate normal. Temperature normal. Oxygen saturation normal. Appearance: Alert. Oriented X3. No acute distress. Head: Normal external exam. Normocephalic. Atraumatic. No Marquez signs noted. No raccoon eyes noted Eyes: PERRLA. EOMI. Conjunctiva and sclera normal. Eyelids normal. ENT: TM's Normal. Pharynx normal. Uvula midline. Moist mucous membranes. No trismus noted. No drooling noted. No muffled voice noted. Neck: Normal inspection. Neck supple. FROM. No adenopathy. Thyroid Normal. No meningeal signs. No neck mass noted. CVS: Normal heart rate and rhythm. Heart sound normal. No murmurs noted. Pulses normal throughout. Respiratory: No respiratory distress. Painless inspiration. Breath sounds normal. No wheezes/rales/rhonchi noted. Chest nontender. No accessory muscle usage noted or decreased air movement noted. Abdomen: Soft and nontender. Bowel sounds normal in all 4 quadrants. No distention noted. No organomegaly noted. No visible injury noted. Back: No CVA tenderness. Full range of motion noted. Skin: Skin warm and dry. Normal skin color. Normal skin turgor. No rashes/lesions/lacerations noted. Extremities: No lower extremity edema. Extremities exhibit normal range of motion. Extremities nontender. Neuro: Oriented X 3. Cranial nerve exam: II-XII are grossly intact No motor deficit. No sensory deficit. Reflexes normal. Course Reevaluation(s) Reevaluation #1: Simple noncomplicated UTI will start the patient on cefuroxime times 10 days and drink plenty of fluids. Time: 00:32 Medical Decision Making Differential Diagnosis Differential Diagnoses: The differential diagnosis associated with the presentation includes (UTI, pyelonephritis, electrolyte derangement, severe anemia.) Admission/Observation Consideration of admission/observation: Escalation of care including admission/observation considered Lab Data MDM Lab Attestation statement: I reviewed the patient's lab results. Labs: Lab Results 09/23/24 Range/Units 23:49 Urine Color Dark Yellow Urine Appearance Turbid Urine pH 5.5 (5.0-9.0) Ur Specific [place] 1.025 (1.005-1.025) Urine Protein 300 (3+) H (Neg-Trace) mg/dL Urine Glucose (UA) Negative (Negative) mg/dL Urine Ketones Trace (Negative) mg/dL Urine Blood Large (3+) H (Negative) Urine Nitrite Positive H (Negative) Ur Leukocyte Esterase Large (3+) H (Negative) Urine RBC >20 H (0-2) /HPF Urine WBC >50 H (0-5) /HPF Urine WBC Clumps Present Ur Squamous Epith Cells 3-5 (0-2) /HPF Urine Bacteria 4+ (None Seen) Hyaline Casts 11-20 (0-2) /LPF Discharge Plan Discharge Clinical Impression: Urinary tract infection Patient Disposition: Home, Self-Care Instructions: Urinary Tract Infection in Women (DC) Prescriptions: New cefuroxime axetil 500 mg tablet 500 mg PO BID Qty: 20 0RF phenazopyridine [Pyridium] 100 mg tablet 100 mg PO TID Qty: 6 0RF No Action naproxen 500 mg tablet 500 mg PO BID PRN (Reason: pain) Qty: 20 0RF benzonatate 100 mg capsule 100 mg PO BID PRN (Reason: cough) Qty: 20 0RF prednisone 20 mg tablet 20 mg PO DAILY 5 Days Qty: 5 0RF acetaminophen [Tylenol] 325 mg capsule 650 mg PO Q6H PRN (Reason: Pain) calcium carbonate-vitamin D3 [Calcium 500 + D] 500 mg(1,250mg) -200 unit tablet 1 tab PO DAILY montelukast [Singulair] 10 mg tablet 10 mg PO BEDTIME lisinopril-hydrochlorothiazide 20-12.5 mg tablet 2 tab PO DAILY glipizide 10 mg tablet 20 mg PO BID pioglitazone [Actos] 15 mg tablet 15 mg PO DAILY hydroxyzine HCl 50 mg tablet 50 mg PO BID Levemir FlexTouch U100 Insulin 100 unit/mL (3 mL) insulin pen 34 unit subcut BEDTIME bisacodyl [Dulcolax (bisacodyl)] 5 mg tablet,delayed release (DR/EC) 10 mg PO ONCE 1 Days Qty: 2 0RF Rx Instructions: take 2 tabs at noon the day before your colonoscopy polyethylene glycol 3350 [Miralax] 17 gram/dose powder 17 g PO ONCE Qty: 238 0RF Rx Instructions: As directed by gastroenterology department at [facility] Referrals: Nasrin Alvarenga MD [Primary Care Provider] - Print Language: Wolof
[2024-09-24 00:20] LABS: Appearance Urine Turbid; Color Urine Dark Yellow; Glucose Urine UA Negative (Negative); Leukocyte Esterase Urine Large (3+) (Negative); Nitrite Urine Positive (Negative); PH 5.5 (5.0-9.0); Specific Gravity - Urine 1.025 (1.005-1.025); UMIC TRIGGER UACC YES; Urine Blood Large (3+) (Negative); Urine Ketones Trace mg/dL (Negative); Urine Protein 300 (3+) mg/dL (Neg-Trace)
[2024-09-24 00:29] LABS: Bacteria Urine 4+ (None Seen); RBC Urine >20 /HPF (0-2); UACC Culture Trigger YES; WBC Clumps Urine Present; WBC Urine >50 /HPF (0-5)
[2024-09-24 00:54] VITALS: BP 146/61; PULSE 65; RESP 16; TEMP 37.1; O2SAT 99
[2024-09-24] MEDS: cefuroxime axetiL 500 MG TABLET PO (01:19)
[2024-09-24 01:29] VITALS: BP 146/61; PULSE 65; RESP 16; TEMP 37.1; O2SAT 99
== END 2024-09-24 01:30 | disposition home or self-care (01) ==
PROVIDERS: Emergency Provider Emergency Medicine; PCP Internal Medicine
DX: N39.0 Urinary tract infection, site not specified (principal); R30.0 Dysuria; E11.9 Type 2 diabetes mellitus without complications; Z79.899 Other long term (current) drug therapy; Z79.4 Long term (current) use of insulin
CPT/HCPCS: 81001; 87086; 99283; 99284

== ENCOUNTER 2024-12-11 14:49 | Outpatient (REF) | payer MEDICARE, MEDICAID, SELFPAY ==
[2024-12-11 16:56] LABS: Alanine Aminotransferase 26 U/L (0-31); Albumin Level 3.9 g/dL (3.5-5.0); Alkaline Phosphatase 92 U/L (39-117); Anion Gap 12 (12-20); Aspartate Amino Transferase 40 U/L (5-31); Bilirubin Direct 0.1 mg/dL (0.0-0.5); Bilirubin Total 0.3 mg/dL (0.0-1.0); Blood Urea Nitrogen 37 mg/dL (9-16); Calcium 9.7 mg/dL (8.4-10.2); Carbon Dioxide 26 mmol/L (22-29); Chloride 107 mmol/L (96-108); Cholesterol 105 mg/dL (<200); Estimated Glomerular Filt Rate 42; Glucose Random 227 mg/dL (60-115); HDL Cholesterol 44 mg/dL (>40); LDL Cholesterol Calculated 41 mg/dL (<100); Potassium 5.1 mmol/L (3.3-5.1); Sodium 140 mmol/L (135-145); Total Protein 8.1 g/dL (6.5-8.0); Triglycerides 104 mg/dL (<150)
--- OUTSIDE RECORDS SUMMARY | 2024-12-11 18:35 | XMS_ITS | Encounter Summary ---
Author Organization [facility] Address [address] [place] [address] Care Team Providers Care Personal Care Worker Name Role Phone Nasrin Alvarenga MD Primary Care Provide r Encounter Details Date Type Department Care Team ([facility] Contact Info) Description 02/28/2023 Orders Only [facility] [address] [place], [place] [phone] Tati Sampson LPN Social History Tobacco Use Types Packs/Day Years Used Date Smoking Tobacco: Never Passive Smoke Exposure: Never Smokeless Tobacco: Never Alcohol Use Standard Drinks/Week Comments Never 0 (1 standard drink = 0.6 oz pur e alcohol) Depression Answer Date Recorded Patient Health Questionnaire-9 Score 0 12/29/2022 Depression Answer Date Recorded Patient Health Questionnaire-2 Score 0 12/29/2022 Comments Unknown Sex and Gender Information Value Date Recorded Sex Assigned at Female 07/31/2022 10:14 AM EDT Legal Sex Female 10:14 AM EDT Gender Identity Female 07/31/2022 10:14 AM EDT Sexual Orientation Straight 07/31/2022 10 :14 AM EDT documented as of this encounter Plan of Treatment Upcoming Encounters Date Type Department Care Team ([facility] Contact Info) Description 01/20/2025 1:30 PM EDT Office Visit [facility] AD[facility] [address], [place] [phone] Efren Atkins DDS [address] [place] [address] 02/05/2025 2:30 PM EDT Office Visit [facility] MEDIC[facility] [address], [place] [phone] Nasrin Alvarenga MD [address] [place] [address] 02/24/2025 11:00 AM EDT Office Visit [facility] [address] [place] [address] Marita Quiroga documented as of this encounter Visit Diagnoses Not on filedocumented in this encounter Additional Health Concerns Assessment Noted Time PHQ-9 Depression Total Score: 0 12/30/19 23 11:42 AM EDT documented as of this encounter Care Teams Personal Care Worker Relationship Specialty Start Date End Date Nasrin Alvarenga MD [address] [place] [address] PCP - General Family Medicine 07/24/19 documented as of this encounter
--- OUTSIDE RECORDS SUMMARY | 2024-12-11 18:35 | XMS_ITS | Clinical Summary ---
Author Organization [employer] Address [address] [place] [address] Care Team Providers Care Service Mechanic Name Role Phone Nasrin Alvarenga MD Primary Care Provide r Allergies Active Allergy Reactions Criticality Noted Date Comments Metronidazole Unknown 10/24/2010 Medications Blood Pressure Monitor kitIndications:Es sential hypertension Use as directed 3x/week 1 kit 03/09/20 23 Active dicyclomine (Bentyl) 10 MG capsuleIndication s:Diverticul disease small and large intestine, no perforati or abscess TAKE 1 CAPSULE BY MOUTH THREE TIMES DAILY 90 capsule 1 06/11/20 23 Active dulaglutide (Trulicity) 3 MG/0.5ML solution pen-injectorIndic ations:Type 2 diabetes mellitus without complication, without long-term current use of insulin (CMS/HCC) Inject 3 mg under the skin 1 (one) time per week. 4 each 11/21/19 24 Active insulin glargine (Lantus SoloStar) 100 UNIT/ML penIndications:Ty pe 2 diabetes mellitus without complication, without long-term current use of insulin (CMS/HCC) Inject 30 Units under the skin in the morning. 3 mL 11/21/19 24 Active Novofine Pen Needle 32G X 6 MM misc USE DIRECTED ONCE DAILY WITH INSULIN 100 each 12/18/19 24 Active insulin degludec (Tresiba FlexTouch) 100 UNIT/ML injectionIndicati ons:Type 2 diabetes mellitus without complication, with long-term current use of insulin (CMS/HCC) Inject 30 Units under the skin in the morning. 9 mL 12/21/19 24 025 Active glucose blood (FREESTYLE LITE) test stripIndications: Type 2 diabetes mellitus without complications (CMS/HCC) TEST BLOOD SUGAR THREE TIMES DAILY 100 strip 11 12/24/19 24 Active TRUEplus Lancets 33G miscIndications:T ype 2 diabetes mellitus without complications ([facility]) TEST BLOOD SUGAR THREE TIMES DAILY 100 each 12/24/19 24 Active Continuous Glucose Flight Information Expediter (FreeStyle Dany 2 Pompey) deviceIndications :Type 2 diabetes mellitus with hyperglycemia, with long-term current use of insulin ([facility]) Scan sensor every 8 hours 1 each 2 02/06/20 24 Active glucose blood (FreeStyle Precision Henry Test) test stripIndications: Type 2 diabetes mellitus with hyperglycemia, with long-term current use of insulin ([facility]) Use to test blood sugar 2 times daily 100 each 12 02/06/20 24 025 Active pravastatin (Pravachol) 40 MG tabletIndications :Essential hypertension Take 1 tablet (40 mg) by mouth Once per day. 30 tablet 02/06/20 24 025 Active pioglitazone (Actos) 30 MG tabletIndications :Type 2 diabetes mellitus with hyperglycemia, with long-term current use of insulin ([facility]) TAKE 1 TABLET BY MOUTH EVERY MORNING 30 tablet 03/24/20 24 Active amLODIPine (Norvasc) 5 MG tabletIndications :Essential (primary) hypertension TAKE 1 TABLET BY MOUTH EVERY MORNING 30 tablet 05/21/20 24 Active Continuous Glucose Sensor (FreeStyle Dany 2 Sensor) miscIndications:T ype 2 diabetes mellitus with hyperglycemia, with long-term current use of insulin ([facility]) USE DIRECTED. CHANGE EVERY 14 DAYS 2 each 2 07/09/20 24 Active lisinopril-hydroC HLOROthiazide 20-12.5 MG tablet TAKE 2 TABLETS BY MOUTH ONCE DAILY IN THE MORNING 180 tablet 1 07/16/20 24 Active Ozempic, 0.25 or 0.5 MG/DOSE, 2 MG/3ML solution pen-injectorIndic ations:Type 2 diabetes mellitus with hyperglycemia, with long-term current use of insulin ([facility]) INJECT 0.5 MG SUBCUTANEOUSLY EVERY 7 DAYS IN THE ABDOMEN, THIGHS, OR UPPER ARM, ROTATE INJECTION SITES. 3 mL 3 09/03/20 24 Active Active Problems Problem Noted Date Diagnosed Date UTI symptoms 11/21/2023 Assessment & Plan (11/21/2023 3:48 PM EST): UA and culture Bactrim for 3 days Encounter for screening mamm ogram for malignant neoplasm of breast 03/09/2023 Type 2 diabetes mellitus wit h hyperglycemia, with long-term current use of insulin 12/29/2022 Assessment & Plan (02/06/2024 12:37 PM EDT): Diabetes is: not controlled - Lab Results Component Value Date HGBA1C 9.4 (A) 02/06/2024 HGBA1C 9.9 (A) 09/04/2023 HGBA1C 10.6 (A) 03/09/2023 - Lab Results Component Value Date MICROALBUR 1.0 11/26/2020 CREATININE 1.18 (H) 01/11/2023 -Changes: I will prescribe CGM for a better idea of her glucose levels through out the day and better adjustment of her insulin and medications - Diabetic eye exam: - Diabetic foot exam: - Continue lifestyle modifications - Trulicity 3mg was discontinue and I started her on ozempic 0.5mg weekly I believe this will be very beneficial for her - Follow up: 3 months Assessment & Plan (03/09/2023 1:26 PM EDT): extensive counseling done I discontinue jardiance and I went up on her trulicity and pioglitazone Log glucose RTC 3 months Assessment & Plan (12/29/2022 1:58 PM EDT): A1c today 11 and glucose 363 - Lab Results Component Value Date HGBA1C 9.5 (H) 11/26/2020 -I ordered today BMP, microalbuminuria, lipid panel - Diabetic eye exam: referral done today - Diabetic foot exam: pending on next appointment - Continue lifestyle modifications -I added today to her medications jardiance 10mg daily and advise to log her glucose for next appointment and bring all her medications -extensive discussion about life style modifications done today Diverticul disease small and large intestine, no perforati or abscess 12/29/2022 Assessment & Plan (12/29/2022 1:58 PM EDT): Tral of bentyl prescribed today Increased frequency of urination 12/27/2022 Essential hypertension 12/27/2022 Assessment & Plan (02/06/2024 12:34 PM EDT): I discontinue atorvastatin and started her on pravastatin take medication every day - Aerobic exercise to reduce BP. Initial goal of 30 min walk 3-5x/week. Increase as tolerated. - low-sodium diet (goal: <2g/day) and heart healthy diet such as DASH to reduce BP and prevent ASCVD. - Home BP monitoring 1-2 x day with goal of <140/90. - Seek immediate medical attention for chest pain, palpitations, SOB, syncope, or sudden changes in mental status. - Do not change or discontinue current prescriptions without first consulting health care provider Assessment & Plan (11/21/2023 3:47 PM EST): Maintenance: BMP: will be order on next appointment Lipid Panel: will be order on next appointment ASCVD Risk: high risk I started her today atorvastatin 20mg daily I will check her labs on next appointment - Aerobic exercise to reduce BP. Initial goal of 30 min walk 3-5x/week. Increase as tolerated. - low-sodium diet (goal: <2g/day) and heart healthy diet such as DASH to reduce BP and prevent ASCVD. - Home BP monitoring 1-2 x day with goal of <140/90. - Seek immediate medical attention for chest pain, palpitations, SOB, syncope, or sudden changes in mental status. - Do not change or discontinue current prescriptions without first consulting health care provider Assessment & Plan (12/29/2022 1:55 PM EDT): Maintenance: BMP: ordered today Lipid Panel: ordered today - Aerobic exercise to reduce BP. Initial goal of 30 min walk 3-5x/week. Increase as tolerated. - low-sodium diet (goal: <2g/day) and heart healthy diet such as DASH to reduce BP and prevent ASCVD. - Home BP monitoring 1-2 x day with goal of <140/90. - Seek immediate medical attention for chest pain, palpitations, SOB, syncope, or sudden changes in mental status. 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 levemir to lantus and instead of at night I put her on 30 units in the morning - Diabetic eye exam:up to date - Diabetic foot exam:pending - Continue lifestyle modifications - Follow up: 3 months Peripheral neuropathy 02/25/2014 Mixed anxiety and depressive disorder 02/25/2014 Osteoarthritis 09/03/2012 Hyperlipidemia 09/03/2012 Gastroesophageal reflux disease 09/03/2012 Hypertension 09/03/2012 Assessment & Plan (03/09/2023 1:27 PM EDT): New BP kit prescribed I advise low Na diet I added amlodipine 2.5mg RTC 2 weeks with nurse then 3 months with me Osteoporosis 04/26/2012 Obesity 04/26/2012 Constipation 04/26/2012 Carpal tunnel syndrome 04/26/2012 Encounters Date Type Department Care Team Description 12/05/2024 Telephone [facility] OPT[facility] [address] [place] [address] Annika Fagan, OD 09/29/2024 Telephone [facility] MEDICINE [address] [place] [address] Belem Brar RN Med B form from Last 3 Months Immunizations Name Administration Dates Next Due Influenza High-dose Quadriva lent Preservative Free 06/28/2022,06/01/2022,07/28/2020 Influenza injectable quadriv alent preservative free 11/21/2023,10/18/2021,10/15/2018,05/09,08/01/2016 Influenza, High Dose Seasona l, Preservative Free 06/19/2019,07/01/2018 Influenza, trivalent, adjuvanted 06/11/2018 Oumou SARS-CoV-2 Vaccination 01/08/2021 Moderna Covid-19 Vaccine 12+ 01/20/2021 Pfizer Covid-19 Vaccine 12+ 11/21/2023 Pfizer Covid-19 Vaccine 12+ Bivalent 07/06/2022 Pneumococcal Conjugate PCV 13 11/25/2018 Pneumococcal Conjugate PCV 20 03/09/2023 Pneumococcal Polysaccharide PPSV23 11/21/2016, TD (adult), 2 Lf tetanus tox oid, preservative free, adsorbed 01/12/2006,08/04/1996 Tdap 01/29/2012 Zoster, Recombinant 09/04/2023,11/25/2018 Zoster, live 05/29/2014 Family History Medical History Relation Name Comments Throat cancer Other Relation Name Status Comments Other Social History Tobacco Use Types Packs/Day Years Used Date Smoking Tobacco: Never Passive Smoke Exposure: Never Smokeless Tobacco: Never Tobacco Cessation:Counseling Given: Not Answered Alcohol Use Standard Drinks/Week Comments Never 0 (1 standard drink = 0.6 oz pur e alcohol) Depression Answer Date Recorded Patient Health Questionnaire-9 Score 0 12/29/2022 Housing Stability Answer Date Recorded What is your housing situation today? I have grantmarie nelson 07/17/[address] you li ve. Do you have problems with any of the following? None of the above 07/17/2023 Food Insecurity Answer Date Recorded Within the past 12 months, y ou worried that your food would run out before you got money to buy more: Often true 11/09/2023 Within the past 12 months,th e food you bought just didn't last and you didn't have enough money to get more: Often true 06/2024 Transportation Answer Date Recorded In the past 12 months, has l ack of transportation kept you from medical appts, meetings, work or from getting things needed for daily living? No 07/17/2023 Utilities Answer Date Recorded In the past 12 months, has t he electric, gas, oil or water company threatened to shut off services in your home? No 07/17/2023 Depression Answer Date Recorded Patient Health Questionnaire-2 Score 0 12/29/2022 Comments Unknown Sex and Gender Information Value Date Recorded Sex Assigned at Female 07/31/2022 10:14 AM EDT Legal Sex Female 10:14 AM EDT Gender Identity Female 07/31/2022 10:14 AM EDT Sexual Orientation Straight 07/31/2022 10 :14 AM EDT Last Filed Vital Signs Vital Sign Reading Time Taken Comments Blood Pressure 138/84 02/28/2024 8:12 AM EDT Pulse 72 02/06/2024 10:34 AM EDT Temperature 36.7 ??C (98 ??F) 02/06/2024 10:34 AM EDT Respiratory Rate 17 02/06/2024 10:34 AM EDT Oxygen Saturation 98% 11/21/2023 10:16 AM EST Inhaled Oxygen Concentration - - Weight 88.3 kg (194 lb 9.6 oz) 02/06/2024 10:34 AM EDT Height 154.9 cm (5' 1 ) 02/06/2024 10:34 AM EDT Body Mass Index 36.77 02/06/2024 10:34 AM EDT Plan of Treatment Upcoming Encounters Date Type Department Care Team (Late st Contact Info) Description 01/20/2025 1:30 PM EDT Office Visit [facility] ADULT DENTAL [address] [place] [address] Efren Atkins DDS [address] [place] [address] 02/05/2025 2:30 PM EDT Office Visit [facility] MEDICINE [address] [place] [address] Nasrin Alvarenga MD [address] [place] [address] 02/24/2025 11:00 AM EDT Office Visit [facility] [address] [place] [address] Marita Quiroga Health Maintenance Due Date Last Done Comments CT Colonography 1950 FIT DNA/Cologuard 1950 FIT 1950 FOBT 1950 Sigmoidoscopy 1950 Alcohol/Substance Use Screening 1964 Hepatitis C Screening 1970 DTaP/Tdap/Td Vaccines (2 - Td or Tdap) 01/28/2022 01/29/2012, 01/12/2006, 08/04/1996 Depression Screening 12/30/2023 12/29/2022, 12/30/19 Diabetes: Urine Protein Screening 01/12/2024 01/11/2023, 11/26/2020 Lipid Panel 01/12/2024 12/11/2024, 12/30, 08/09/2020 Diabetes: Foot Exam 03/09/2024 03/09/2023, Diabetes: Hemoglobin A1C 05/08/2024 024, 09/04/2023, 03/09/2023, Additional history exists COVID-19 Vaccine ( season) 2024 11/21/2023, 07/06/2022, 05/23/2022, Additional history exists Influenza Vaccine (#1) 2024 , 06/28/2022, 06/01/2022, Additional history exists Dental Prophylaxis 08/31/2024 02/28/2024, 1 11/21/2020, 04/06/2015 SDOH Screening 11/09/2024 11/09/2023 Dental Oral Exam 12/16/2024 06/17/2024, 10/09/2008 Dental X-Ray: Bitewings 02/28/2025 02/28/2024, 12/23 Mammogram 05/21/2025 05/21/2024, 03/31, 07/08/2020, Additional history exists Tobacco Screening 06/17/2025 06/17/2024 Eye Exam 06/18/2025 06/18/2023, 06/01, 06/18/2023, Additional history exists Dental X-Ray: Full Mouth 06/18/2027 06/17/2024, 11/30 RSV Patients and Patients Aged 60 years or older (1 - 1-dose 75+ series) 2027 Colonoscopy 12/21/2030 12/21/2020 Colorectal Cancer Screening 12/21/2030 Pneumococcal Vaccine: 50+ Years Completed 03/09/2023, 11/25/2018, 11/21/2016, Additional history exists Zoster Vaccines Completed 09/04/2023, 11/02, 05/29/2014 HIB Vaccines Aged Out No longer eligi ble based on patient's age to complete this topic HPV Vaccines Aged Out No longer eligi ble based on patient's age to complete this topic Hepatitis A Vaccines Aged Out No long er eligible based on patient's age to complete this topic Hepatitis B Vaccines Aged Out No long er eligible based on patient's age to complete this topic IPV Vaccines Aged Out No longer eligi ble based on patient's age to complete this topic Meningococcal Vaccine Aged Out No jordan arcelia eligible based on patient's age to complete this topic RSV under 20 months Aged Out No longe r eligible based on patient's age to complete this topic Rotavirus Vaccines Aged Out No longer eligible based on patient's age to complete this topic Goals Goal Patient Goal Type Associated Problems Recent Progress Patient-Stated? Author Blood Pressure < 140/90 Blood Pressure 138/84(2023 8:12 AM EDT) No Davin Duckworth PharmD Hemoglobin A1c < 7 Result Component 9.4( 10:43 AM EDT) No Davin Duckworth PharmD Procedures Procedure Name Priority Date/Time Associated Diagnosis Comments HEPATIC FUNCTION PANEL Routine 5 2:51 PM EDT Essential hypertension Type 2 diabetes mellitus with hyperglycemia, with long-term current use of insulin ([facility]) LIPID PANEL, STANDARD Routine 12/11/2024 2:51 PM EDT Essential hypertension Type 2 diabetes mellitus with hyperglycemia, with long-term current use of insulin ([facility]) BASIC METABOLIC PANEL Routine 12/11/2024 2:51 PM EDT Essential hypertension Type 2 diabetes mellitus with hyperglycemia, with long-term current use of insulin ([facility]) CULTURE, URINE, ROUTINE Routine 09/24/2024 12:00 AM EST URINALYSIS, COMPLETE, WITH REFLEX TO CULTURE Routine 09/23/2024 11:49 PM EST PANORAMIC RADIOGRAPHIC IMAGE Routine 06/17/2024 11:00 AM EDT Encounter for dental examination Periodontal disease Malocclusion PERIODIC ORAL EVALUATION - ESTABLISHED PATIENT Routine 06/17/2024 11:00 AM EDT Encounter for dental examination Periodontal disease Malocclusion BI MAMMOGRAM SCREENING TOMOSYNTHESIS BILATERAL Routine 05/21/2024 12:15 PM EDT Full PROPHYLAXIS - ADULT Routine 02/28/2024 8:00 AM EDT Subgingival dental calculus Dental plaque BITEWINGS - 4 RADIOGRAPHIC IMAGES Routine 02/28/2024 8:00 AM EDT POCT GLYCATED HEMOGLOBIN, TOTAL Routine 02/06/2024 10:43 AM EDT Type 2 diabetes mellitus with hyperglycemia, with long-term current use of insulin ([facility]) ALBUMIN, RANDOM URINE W/O CREATININE Routine 01/11/2023 8:53 AM EDT Essential hypertension Type 2 diabetes mellitus with hyperglycemia, with long-term current use of insulin ([facility]) HM COLONOSCOPY Routine 12/21/2020 from Last 3 Months or Most Recently Relevant to Health Maintenance Results * (ABNORMAL) Hepatic Function Panel (12/11/2024 2:51 PM EDT) Bilirubin, Total 0.3 0.0 - 1.0 mg/dL [facility] Bilirubin, Direct 0.1 0.0 - 0.5 mg/dL [facility] Aspartate Amino Transferase 40(H) 5 - 31 U/L [facility] Alanine Aminotransferase 26 0 - 31 U/L [facility] Total Protein 8.1(H) 6.5 - 8.0 g/dL [facility] Albumin Level 3.9 3.5 - 5.0 g/dL [facility] Alkaline Phosphatase 92 39 - 117 U/L [facility] Blood Venous blood specimen / Unknown 12/11/2024 2:51 PM EDT 12/11/2024 4:06 PM EDT us Nasrin Haas MD LAB BLOOD ORDERABLES Final Result Performing Organization Address [facility]/ZIP Co de Phone Number [facility] [address] [place] [address] [phone] * Lipid Panel, Standard (12/11/2024 2:51 PM EDT) Triglycerides 104 <150 mg/dL [facility] Comment:Desirable Triglyceri de: less than 150 mg/dLBorderline High Triglyceride 150-199 mg/dLHigh Triglyceride: 200-499 mg/dLVery High Triglyceride: greater than or equal to 5OO mg/dL Cholesterol 105 <200 mg/dL [facility] Comment:Desirable Cholestero l: less than 200 mg/dLBorderline High Cholesterol: 200-239 mg/dLHigh Cholesterol: greater than 239 mg/dL LDL Cholesterol Calculated 41 <100 mg/dL [facility] Comment:Desirable LDL: less than 100 mg/dLNear Optimal/Above Optimal LDL: 110- 129 mg/dLBorderline High LDL: 130-159 mg/dLHigh LDL: 160-189 mg/dLVery High LDL: greater than or equal to 190 mg/dL HDL Cholesterol 44 >40 mg/dL [facility] Comment:Desirable HDL: great er than 40 mg/dL Note: This HDL assay may give artificially low results in patients with liver disease. Blood Venous blood specimen / Unknown 12/11/2024 2:51 PM EDT 12/11/2024 4:06 PM EDT us Nasrin Haas MD LAB BLOOD ORDERABLES Final Result Performing Organization Address City/[facility]/ZIP Co de Phone Number [facility] [address] [place] [address] [phone] * (ABNORMAL) Basic Metabolic Panel (12/11/2024 2:51 PM EDT) Sodium 140 135 - 145 mmol/L [facility] Potassium 5.1 3.3 - 5.1 mmol/L [facility] Chloride 107 96 - 108 mmol/L [facility] Carbon Dioxide 26 22 - 29 mmol/L [facility] Anion Gap 12 12 - 20 [facility] Urea Nitrogen (BUN) 37(H) 9 - 16 mg/dL [facility] Creatinine, Serum 1.25 0.5 - 1.4 mg/dL [facility] Estimated Glomerular Filt Rate 42 [facility] Comment:Chronic Kidney Disea se: Estimated GFR < 60 mL/min/[id number] Kidney Disease: Estimated GFR < 15 mL/min/1.73m2 Glucose 227(H) 60 - 115 mg/dL [facility] Calcium 9.7 8.4 - 10.2 mg/dL [facility] Blood Venous blood specimen / Unknown 12/11/2024 2:51 PM EDT 12/11/2024 4:06 PM EDT us Nasrin Haas MD LAB BLOOD ORDERABLES Final Result Performing Organization Address City/[facility]/ZIP Co de Phone Number [facility] [address] [place] [phone] * Culture, Urine, Routine (09/24/2024 12:00 AM EST) Urine Urine specimen obtained by clean catch procedure / Unknown 09/24/2024 09/24/2024 Comment:UACC Narrative [facility] - 09/26/2024 9:20 AM EST Urine Culture Report Result Urine Culture > 100,000 cfu/ml Urine Culture Mixed bacterial hai characteristic of Urine Culture urogenital contamination. Specimen Source: Urine clean catch us Generic External Data Provider LAB MICROBIOLOGY - GENERAL ORDERABLES Final Result Performing Organization Address City/[facility]/ZIP Co de Phone Number [facility] [address] [place] [address] [phone] * (ABNORMAL) Urinalysis, Complete, with Reflex to Culture (09/23/2024 11:49 PM EST) Color Urine Dark Yellow [facility] Appearance Urine Turbid [facility] PH 5.5 5.0 - 9.0 [facility] Glucose Urine UA Negative Negative mg/dL [facility] Urine Blood Large (3+)(A) Negative [facility] Specific [place] - Urine 1.025 1.005 - 1.025 [facility] Urine Protein 300 (3+)(A) Neg-Trace mg/dL [facility] Urine Ketones Trace Negative mg/dL [facility] Nitrite Urine Positive(A) Negative [facility] Leukocyte Esterase Urine Large (3+)(A) Negative [facility] RBC Urine >20(A) 0 - 2 /HPF [facility] Urine WBC >50(A) 0 - 5 /HPF [facility] WBC CLUMPS, UR Present [facility] Urine Squamous Epithelial Cell 3-5 0 - 2 /HPF [facility] Urine Bacteria 4+ None Seen [facility] Hyaline Casts, Urine 11-20 0 - 2 /LPF [facility] 09/23/2024 11:4 9 PM EST 09/24/2024 12:09 AM EST Narrative [facility] - 09/24/2024 12:30 AM EST [id number], Clean Catch us Generic External Data Provider LAB URINE ORDERAB LES Final Result Performing Organization Address [facility] de Phone Number [facility] [address] [place] [phone] * BI Mammogram Screening Tomosynthesis Bilateral (05/21/2024 12:15 PM EDT) Anatomical Region Laterality Modality Breast Bilateral Mammography 05/21/2024 12:1 5 PM EDT Narrative 06/18/2024 9:15 PM EDT ? [facility] ? [address] ?[place] [address] ? Mammography Report ? Signed ? Patient: Robbie,Connie ?MR#: [id number] ?? [id number] ? : 1950 ?Acct:[id number] ? Age/Sex: 73 / F ?ADM Date: 05/21/24 ? Loc: HO.MAMMO ? Attending Dr: Nasrin Haas MD ? Ordering Physician: Nasrin Alvarenga MD ?Results: ?? 1Negative ? Date of Service: 05/21/24 ?Follow Up: 1 Year From Orig ?? inal Mammogram ? Procedure(s): MM tomosynthesis screening BI ?? Accession Number(s): [id number] ? cc: Nasrin Alvarenga MD ? EXAMINATION: ?? MM SCREENING DIGITAL BREAST TOMOSYNTHESIS, BILATERAL ? CLINICAL INFORMATION: ? Screening. Asymptomatic. ? COMPARISON: ?? Mammography: Comparison made with prior available imaging. ? TECHNIQUE: ?? Digital breast tomosynthesis is performed in both the craniocaudal and ?? mediolateral oblique views along with computer-aided detection (CAD). ? Synthesized 2D images are generated from the tomosynthesis. ? FINDINGS: ?? There are scattered areas of fibroglandular density (ACR BI-RADS breast ?? composition Category b). ? There are no significant masses, abnormal calcifications, or other ?? abnormalities. ? MM/MM tomosynthesis screening BI ?? IMPRESSION: ?? No mammographic evidence of malignancy. ? ASSESSMENT: ? BI-RADS BI-RADS 1 - Negative ? RECOMMENDATION: ?? Routine annual mammography screening. ? 1 year F/U ? This examination should not preclude the clinical evaluation of a ?? suspicious palpable abnormality. ? This patient's information was entered into a reminder system with a ?? target due date for their next mammogram. ? Electronically signed by: ??Giuliana Davis DO ??06/18/2024 09:12 PM EDT ? Dictated By: ?Giuliana Davis DO ? Signed By: ?<Electronically signed by Giuliana Davis, DO in OV> ? 06/18/242111 ? DD/ 1215 ? TD/TT: 05/21/24 1235 ? Casting Molder: ? Procedure Note Samreen, Image - 06/18/2024 Alex [facility] [address] [place], [place] [address] Mammography Report Signed Patient: Anabel Avalos MMR#: [id number] : 2Acct:[id number] Age/Sex: 73 / FADM Date: 05/21/24 Loc: HO.MAMMO Attending Dr: Nasrin Haas MD Ordering Physician: Nasrin Alvarenga MDResults: 1Negative Date of Service: 05/21/24Follow Up: 1 Year From Orig inal Mammogram Procedure(s): MM tomosynthesis screening BI Accession Number(s): [id number] cc: Nasrin Alvarenga MD EXAMINATION: MM SCREENING DIGITAL BREAST TOMOSYNTHESIS, BILATERAL CLINICAL INFORMATION: Screening. Asymptomatic. COMPARISON: Mammography: Comparison made with prior available imaging. TECHNIQUE: Digital breast tomosynthesis is performed in both the craniocaudal and mediolateral oblique views along with computer-aided detection (CAD). Synthesized 2D images are generated from the tomosynthesis. FINDINGS: There are scattered areas of fibroglandular density (ACR BI-RADS breast composition Category b). There are no significant masses, abnormal calcifications, or other abnormalities. MM/MM tomosynthesis screening BI IMPRESSION: No mammographic evidence of malignancy. ASSESSMENT: BI-RADS BI-RADS 1 - Negative RECOMMENDATION: Routine annual mammography screening. 1 year F/U This examination should not preclude the clinical evaluation of a suspicious palpable abnormality. This patient's information was entered into a reminder system with a target due date for their next mammogram. Electronically signed by: Giuliana Davis DO 06/18/2024 09:12 PM EDT RP Dictated By: Giuliana Davis DO Signed By: <Electronically signed by Giuliana Davis DO in OV> 06/18/242 DD/ 1215 TD/TT: 05/21/24 1235 Casting Molder: Nasrin Haas MD IMG BI PROCEDURES Fin al Result * (ABNORMAL) POCT HGB A1C (02/06/2024 10:43 AM EDT) Hemoglobin A1C 9.4(A) 4.0 - 6.0 % Blood 02/06/2024 10:4 3 AM EDT Nasrin Haas MD POINT OF CARE TEST EN TER/EDIT ORDERABLES Final Result * Albumin, Random Urine W/O Creatinine (01/11/2023 8:53 AM EDT) Albumin, Urine 0.7 See Note: mg/dL [facility] Comment: Reference Range: Reference Range Not established MI[facility] Comment: The ADA defines abnormalities in albumin excretion as follows: Albuminuria Category ? Result (mcg/mg creatinine) Normal to Mildly increased ?<30 Moderately increased ?30-299 Severely increased ?> OR = 300 The ADA recommends that at least two of three specimens collected within a 3-6 month period be abnormal before considering a patient to be within a diagnostic category. Urine Urine specimen obtained by clean catch procedure / Unknown 01/11/2023 8:53 AM EDT 01/11/2023 8:54 AM EDT Narrative [facility] - 01/12/2023 1:12 AM EDT FASTING:YES FASTING: YES us Nasrin Haas MD LAB URINE ORDERABLES Final Result [facility] [address], [place] [address] [facility] [address] [place] [address] * Hm Colonoscopy (12/21/2020) Colonoscopy Normal Normal Narrative Heidi Cornell - 12/21/2020 Recommended 10 year follow up Historical Provider HEALTH MAINTENANCE Final Result from Last 3 Months or Most Recently Relevant to Health Maintenance Insurance [facility] [place] [address] [place] [phone] [facility] STANDARD D[facility] MEDICAID STAND ADULT DENTAL [facility] PPO Care Teams Service Mechanic Relationship Specialty Start Date End Date Nasrin Alvarenga MD [address] [place] [phone] PCP - General Family Medicine 07/24/19
--- OUTSIDE RECORDS SUMMARY | 2024-12-11 18:36 | XMS_ITS | Encounter Summary ---
Author Organization [employer] Address [address] [place] [address] Care Team Providers Care Inflated Pad Buffer Name Role Phone Nasrin Alvarenga MD Primary Care Provide r Encounter Details Date Type Department Care Team (Late st Contact Info) Description 12/05/2024 Telephone C OPTOMETRY [address] [place] [address] Rylan Annika, OD [address] [place] [address] Social History Tobacco Use Types Packs/Day Years Used Date Smoking Tobacco: Never Passive Smoke Exposure: Never Smokeless Tobacco: Never Alcohol Use Standard Drinks/Week Comments Never 0 (1 standard drink = 0.6 oz pur e alcohol) Depression Answer Date Recorded Patient Health Questionnaire-9 Score 0 12/29/2022 Housing Stability Answer Date Recorded What is your housing situation today? I have grant nelson 07/17/[address] you [...] 1:30 PM EDT Office Visit [facility] ADULT DENTAL [address] [place], [place] [phone] Efren Atkins DDS [address] [place], [place] [phone] 02/05/2025 2:30 PM EDT Office Visit [facility] MEDICINE [address] [place] [address] Nasrin Alvarenga MD [address] [place] [address] 02/24/2025 11:00 AM EDT Office Visit [facility] ADULT [facility]ENTAL [address] [place] [address] Marita Quiroga documented as of this encounter Goals Goal Patient Goal Type Associated Problems Recent Progress Patient-Stated? Author Blood Pressure < 140/90 Blood Pressure 138/84(2023 8:12 AM EDT) No Davin Duckworth PharmHaley Hemoglobin A1c < 7 Result Component 9.4( 10:43 AM EDT) No Davin Duckworth PharmD documented as of this encounter Visit Diagnoses Not on filedocumented in this encounter Additional Health Concerns Assessment Noted Time PHQ-9 Depression Total Score: 0 12/30/19 23 11:42 AM EDT documented as of this encounter Care Teams Inflated Pad Buffer Relationship Specialty Start Date End Date Nasrin Alvarenga MD [address] [place] [address] [phone] PCP - General Family Medicine 07/24/19 documented as of this encounter
--- OUTSIDE RECORDS SUMMARY | 2024-12-11 18:36 | XMS_ITS | Encounter Summary ---
Author Organization [employer] [facility] Address [address] [facility] 7[address] [place] [address] Care Team Providers Care Global Regulatory Lead Name Role Phone Nasrin Alvarenga MD Primary Care Provide r Encounter Details Date Type Department Care Team (Latest Contact Info) Description 09/20/2021 Abstract [facility] CONVERSIONS Dental, Provider, DDS Social History Tobacco Use Types Packs/Day Years Used Date Smoking Tobacco: Never Assessed Comments Unknown Sex and Gender Information Value [...] Description 01/20/2025 1:30 PM EDT Office Visit [facility] ADULT DENTAL [address] [place] [address] Efren Atkins DDS [address] [place] [address] 02/05/2025 2:30 PM EDT Office Visit [facility] MEDICINE [address] [place] [address] Nasrin Alvarenga MD [address] [place] [address] 02/24/2025 11:00 AM EDT Office Visit [facility] ADULT DENTAL [address] [place] [address] Marita Quiroga documented as of this encounter Visit Diagnoses Not on filedocumented in this encounter Care Teams Global Regulatory Lead Relationship Specialty Start Date End Date Nasrin Alvarenga MD [address] [place] [address] PCP - General Family Medicine 07/24/19 documented as of this encounter
--- OUTSIDE RECORDS SUMMARY | 2024-12-11 18:36 | XMS_ITS | Encounter Summary ---
Author Organization [employer] Address [address] [facility] [address] [place] [address] Care Team Providers Care Consulting Services Project Manager Name Role Phone Nasrin Alvarenga MD Primary Care Provide r Encounter Details Date Type Department Care Team (Late st Contact Info) Description 07/11/2023 Abstract [facility] [address] [place] [address] Nasrin Alvarenga MD [address] [place], [place] [phone] Social History Tobacco Use Types Packs/Day Years Used Date Smoking Tobacco: Never Passive Smoke Exposure: Never Smokeless Tobacco: Never Alcohol Use Standard Drinks/Week Comments Never 0 (1 standard drink = 0.6 oz pur e alcohol) Depression Answer Date Recorded Patient Health Questionnaire-9 Score 0 12/29/2022 Housing Stability Answer Date Recorded What is your housing situation today? I have grantmarie nelson 07/11/[address] you li ve. Do you have problems with any of the following? None of the above 07/11/2023 Food Insecurity Answer Date Recorded Within the past 12 months, y ou worried that your food would run out before you got money to buy more: Never True 07/11/2023 Within the past 12 months,th e food you bought just didn't last and you didn't have enough money to get more: Never True 08/2023 Transportation Answer Date Recorded In the past 12 months, has l ack of transportation kept you from medical appts, meetings, work or from getting things needed for daily living? No 07/11/2023 Utilities Answer Date Recorded In the past 12 months, has t he electric, gas, oil or water company threatened to shut off services in your home? No 07/11/2023 Depression Answer Date Recorded Patient Health Questionnaire-2 [...] Description 01/20/2025 1:30 PM EDT Office Visit [facility] DENT[facility] [address] [place] [address] Efren Atkins DDS [address] [place] [address] 02/05/2025 2:30 PM EDT Office Visit [facility] [address] [place] [address] Nasrin Alvarenga MD [address] [place] [address] 02/24/2025 11:00 AM EDT Office Visit [facility] [address] [place] [address] Marita Quiroga documented as of this encounter Procedures Procedure Name Priority Date/Time Associated Diagnosis Comments COLONOSCOPY Routine 12/21/2020 documented in this encounter Results * Colonoscopy (12/21/2020) Colonoscopy Normal Normal Narrative Heidi Cornell - 12/21/2020 Recommended 10 year follow up us Historical Provider HEALTH MAINTENANCE Final Result documented in this encounter Visit Diagnoses Not on filedocumented in this encounter Additional Health Concerns Assessment Noted Time PHQ-9 Depression Total Score: 0 12/30/19 11:42 AM EDT documented as of this encounter Care Teams Consulting Services Project Manager Relationship Specialty Start Date End Date Nasrin Alvarenga MD [address] [place] [address] [phone] PCP - General Family Medicine 07/24/19 documented as of this encounter
[2024-12-12 04:27] LABS: HBS Num1 26.27 mIU/mL (0-7.99); ~HepC Num1 0.15 S/CO (0.00-0.79); ~Hepatitis B Surface Antibody REACTIVE (Nonreactive); ~Hepatitis C Antibody Nonreactive (Nonreactive)
== END 2024-12-11 14:50 | disposition home or self-care (01) ==
LOC: HO.HHCL 14:49
PROVIDERS: Visit Provider Internal Medicine
DX: Z11.59 Encounter for screening for other viral diseases (principal); Z72.89 Other problems related to lifestyle; I10 Essential (primary) hypertension; E11.65 Type 2 diabetes mellitus with hyperglycemia; Z79.4 Long term (current) use of insulin
CPT/HCPCS: 36415; 80048; 80061; 80076; 86706; 86803

== ENCOUNTER 2025-02-05 15:02 | Outpatient (REF) | payer MEDICARE, MEDICAID, SELFPAY ==
--- NOTE | ~2025-02-05 | XR_ITS ---
EXAMINATION: XR HIP, LEFT CLINICAL INFORMATION: pain COMPARISON: None available. TECHNIQUE: Two views of the left hip. FINDINGS: No fracture, dislocation, or suspicious bone lesion. There is anatomical alignment. There is mild degenerative arthritis of the left hip joint with minimal superolateral osteophytic spurring of the acetabulum. There is normal acetabular coverage. The femoral head is normal in contour without evidence of AVN. There is mild intrahepatic calcification of the greater trochanter. Soft tissues demonstrate surgical clips in the left hemipelvis. There are diffuse vascular calcifications. XR/XR hip LT min 2V IMPRESSION: No acute bony abnormality. Mild degenerative arthritis left hip joint. Mild enthesopathy of the greater trochanter. Electronically signed by: Pablo Gorman MD 02/05/2025 04:44 PM EDT
--- NOTE | ~2025-02-05 | XR_ITS ---
EXAMINATION: XR LUMBOSACRAL SPINE CLINICAL INFORMATION: pain COMPARISON: None available. TECHNIQUE: Three views of the lumbosacral spine. FINDINGS: There is mild osseous demineralization. There is mild right convex scoliosis, apex at L2. There is normal lumbar lordosis. There is normal sagittal alignment without subluxation. There is no compression deformity, fracture, or suspicious bone lesion. Mild to moderate diffuse disc degeneration is present, most significant at T12-L1 and L1-L2. Normal facet alignment. Degenerative facet changes mainly present L4-S1. There are surgical clips within the mid pelvis. There are diffuse vascular calcifications in the soft tissues. There are cholecystectomy clips noted. XR/XR lumbar spine 2-3V IMPRESSION: 1. No acute finding of the lumbar spine. 2. Mild scoliosis, and mild to moderate diffuse spondylosis. Electronically signed by: Pablo Gorman MD 02/05/2025 04:47 PM EDT
--- OUTSIDE RECORDS SUMMARY | 2025-02-05 15:39 | XMS_ITS | Encounter Summary ---
Author Organization [employer] Address [address] [facility] 7[address] [place] [address] Care Team Providers Care Disabilities Caregiver Name Role Phone Nasrin Alvarenga MD Primary Care Provide r Encounter Details Date Type Department Care Team (Latest Contact Info) Description 09/20/2021 Abstract [facility] CONVERSIONS Dental, Provider, DDS Social History Tobacco [...] Upcoming Encounters Date Type Department Care Team ( st Contact Info) Description 02/24/2025 11:00 AM EDT Office Visit [facility] ADULT DENTAL [address] [place] [address] Marita Quiroga 03/05/2025 10:30 AM EDT Office Visit [facility] ADULT DENTAL [address] [place] [address] Efren Atkins DDS [address] [place] [address] 05/07/2025 10:00 AM EDT Office Visit [facility] MEDICINE [address] [place] [address] Nasrin Alvarenga MD [address] [place] [address] documented as of this encounter Visit Diagnoses Not on filedocumented in this encounter Care Teams Disabilities Caregiver Relationship Specialty Start Date End Date Nasrin Alvarenga MD [address] [place] [phone] PCP - General Family Medicine 07/24/19 documented as of this encounter
--- OUTSIDE RECORDS SUMMARY | 2025-02-05 15:39 | XMS_ITS | Clinical Summary ---
Author Organization [employer] Address [address] [place] [address] Care Team Providers Care Senior Energy Consultant Name Role Phone Nasrin Alvarenga MD Primary Care Provide r Allergies Active Allergy Reactions Criticality Noted Date Comments Metronidazole Unknown 10/24/2010 Medications Blood Pressure Monitor kitIndications:E ssential hypertension Use as directed 3x/week 1 kit 023 Active dicyclomine (Bentyl) 10 MG capsuleIndicatio ns:Diverticul disease small and large intestine, no perforati or abscess TAKE 1 CAPSULE BY MOUTH THREE TIMES DAILY 90 capsule 1 023 Active insulin glargine (Lantus SoloStar) 100 UNIT/ML penIndications:T ype 2 diabetes mellitus without complication, without long-term current use of insulin ([facility]) Inject 30 Units under the skin in the morning. 3 mL 12 024 Active insulin degludec (Tresiba FlexTouch) 100 UNIT/ML injectionIndicat ions:Type 2 diabetes mellitus without complication, with long-term current use of insulin ([facility]) Inject 30 Units under the skin in the morning. 9 mL 11 024 Active glucose blood (FREESTYLE LITE) test stripIndications :Type 2 diabetes mellitus without complications ([facility]) TEST BLOOD SUGAR THREE TIMES DAILY 100 strip 11 024 Active Continuous Glucose Field Service Analyst (FreeStyle Dany 2 Miller) deviceIndication s:Type 2 diabetes mellitus with hyperglycemia, with long-term current use of insulin ([facility]) Scan sensor every 8 hours 1 each 2 024 Active glucose blood (FreeStyle Precision Henry Test) test stripIndications :Type 2 diabetes mellitus with hyperglycemia, with long-term current use of insulin ([facility]) Use to test blood sugar 2 times daily 100 each 12 024 2024 Active pioglitazone (Actos) 30 MG tabletIndication s:Type 2 diabetes mellitus with hyperglycemia, with long-term current use of insulin ([facility]) TAKE 1 TABLET BY MOUTH EVERY MORNING 30 tablet 11 Active amLODIPine (Norvasc) 5 MG tabletIndication s:Essential (primary) hypertension TAKE 1 TABLET BY MOUTH EVERY MORNING 30 tablet Active Continuous Glucose Sensor (FreeStyle Dany 2 Sensor) miscIndications: Type 2 diabetes mellitus with hyperglycemia, with long-term current use of insulin ([facility]) USE DIRECTED. CHANGE EVERY 14 DAYS 2 each 2 Active insulin degludec (Tresiba FlexTouch) 200 UNIT/ML injection Inject 30 Units under the skin in the morning. 9 mL 1 Active lisinopril-hydro CHLOROthiazide 20-12.5 MG tablet TAKE 2 TABLETS BY MOUTH ONCE DAILY IN THE MORNING 180 tablet 1 Active Easy Touch Pen [place] 31G X 6 MM miscIndications: Type 2 diabetes mellitus without complications ([facility]) USE DIRECTED ONCE DAILY WITH INSULIN 100 each Active TRUEplus Lancets 33G miscIndications: Type 2 diabetes mellitus without complications ([facility]) TEST BLOOD SUGAR THREE TIMES DAILY 100 each Active pravastatin (Pravachol) 40 MG tabletIndication s:Essential hypertension TAKE 1 TABLET BY MOUTH EVERY MORNING 30 tablet Active semaglutide (Ozempic) 2 MG/1.5ML solution pen-injectorIndi cations:Type 2 diabetes mellitus with diabetic polyneuropathy, with long-term current use of insulin ([facility]) Inject 1 mg under the skin 1 (one) time per week. 2 each 3 025 Active Lancets miscIndications: Type 2 diabetes mellitus with diabetic polyneuropathy, with long-term current use of insulin ([facility]) Use to test blood sugar 3 times daily 100 each 3 025 Active acetaminophen (Tylenol 8 Hour) 650 MG ER tabletIndication s:Chronic left-sided low back pain without sciatica,Left hip pain Take 1 tablet (650 mg) by mouth every 8 (eight) hours if needed for mild pain. Do not crush, chew, or split. 30 tablet 2 025 2024 Active dulaglutide (Trulicity) 3 MG/0.5ML solution pen-injectorIndi cations:Type 2 diabetes mellitus without complication, without long-term current use of insulin ([facility]) Inject 3 mg under the skin 1 (one) time per week. 4 each 024 2024 Discontinued Novofine Pen Needle 32G X 6 MM misc USE DIRECTED ONCE DAILY WITH INSULIN 100 each 024 2024 Discontinued TRUEplus Lancets 33G miscIndications: Type 2 diabetes mellitus without complications ([facility]) TEST BLOOD SUGAR THREE TIMES DAILY 100 each 024 2024 Discontinued pravastatin (Pravachol) 40 MG tabletIndication s:Essential hypertension Take 1 tablet (40 mg) by mouth Once per day. 30 tablet 11 024 2024 Discontinued lisinopril-hydro CHLOROthiazide 20-12.5 MG tablet TAKE 2 TABLETS BY MOUTH ONCE DAILY IN THE MORNING 180 tablet 1 024 2024 Discontinued Ozempic, 0.25 or 0.5 MG/DOSE, 2 MG/3ML solution pen-injectorIndi cations:Type 2 diabetes mellitus with hyperglycemia, with long-term current use of insulin ([facility]) INJECT 0.5 MG SUBCUTANEOUSLY EVERY 7 DAYS IN THE ABDOMEN, THIGHS, OR UPPER ARM, ROTATE INJECTION SITES. 3 mL 3 024 2024 Discontinued Ozempic, 0.25 or 0.5 MG/DOSE, 2 MG/3ML solution pen-injectorIndi cations:Type 2 diabetes mellitus with hyperglycemia, with long-term current use of insulin ([facility]) INJECT 0.5 MG SUBCUTANEOUSLY EVERY 7 DAYS IN THE ABDOMEN, THIGHS, OR UPPER ARM, ROTATE INJECTION SITES. 3 mL 3 025 2024 Discontinued Active Problems Problem Noted Date Diagnosed Date Chronic left-sided low back pain 02/05/2025 Left hip pain 02/05/2025 Partial edentulism 01/20/2025 UTI symptoms 11/21/2023 Assessment & Plan (11/21/2023 [...] medications with her Type 2 diabetes mellitus with diabetic polyneuro aida 02/25/2014 Assessment & Plan (11/21/2023 3:50 PM EST): Diabetes is: not controlled - Lab Results Component Value Date HGBA1C 9.9 (A) 09/04/2023 HGBA1C 10.6 (A) 03/09/2023 HGBA1C 11.0 (A) 12/29/2022 - Lab Results Component Value Date MICROALBUR 1.0 11/26/2020 CREATININE 1.18 (H) 01/11/2023 -Changes: I went up on trulicity to 3mg weekly, 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 and instead [...] Encounters Date Type Department Care Team Description 02/05/2025 2:30 PM EDT Office Visit [facility] MEDICINE [address] [place] [address] Nasrin Alvarenga MD Essential hypertension; Chronic left-sided low back pain without sciatica; Left hip pain; Type 2 diabetes mellitus with diabetic polyneuropathy, with long-term current use of insulin ([facility]) 02/04/2025 Telephone [facility] MEDICINE [address] [place] [address] Nasrin Alvarenga MD Chart Prep 01/30/2025 Patient Outreach [facility] MED[facility]INE [address] [place] [address] Nasrin Alvarenga MD Care Coordination (CHW outreach for SDOH PT-1 and food needs-referral completed /) 01/30/2025 Patient Outreach [facility] MED[facility]INE [address] [place] [address] Nasrin Alvarenga MD Pre-visit Planning (SDOH screening positive and Tobacco screening negative) 01/23/2025 Refill [facility] MED[facility]INE [address] [place] [address] Nasrin Alvarenga MD Type 2 diabetes mellitus without complications ([facility]); Essential hypertension 01/20/2025 1:30 PM EDT Office Visit [facility] ADULT DENTAL [address] [place] [address] Efren Atkins DDS Partial edentulism, unspecified edentulism class (Primary Dx) 01/15/2025 Refill [facility] MEDICINE [address] [place] [address] Nasrin Alvarenga MD 01/13/2025 Refill [facility] MED[facility]INE [address] [place] [address] Nasrin Alvarenga MD Type 2 diabetes mellitus with hyperglycemia, with long-term current use of insulin (CMS/HCC) 12/19/2024 Refill [facility] [address] [place] [address] Nasrin Alvarenga MD Type 2 diabetes mellitus without complication, with long-term current use of insulin (CMS/HCC) 12/19/2024 Refill [facility] MED[facility]INE [address] [place] [address] Nasrin Alvarenga MD Type 2 diabetes mellitus without complication, with long-term current use of insulin (CMS/HCC) 12/05/2024 Telephone [facility] OPTOMETRY [address] [place] [address] Annika Fagan OD from Last 3 Months Immunizations Name Administration [...] housing situation today? I have grant nelson 01/30/[address] you li ve. Do you have problems with any of the following? None of the above 01/30/2025 Food Insecurity Answer Date Recorded Within the past 12 months, y ou worried that your food would run out before you got money to buy more: Often true 01/30/2025 Within the past 12 months,th e food you bought just didn't last and you didn't have enough money to get more: Often true 11/2024 Transportation Answer Date Recorded In the past 12 months, has l ack of transportation kept you from medical appts, meetings, work or from getting things needed for daily living? Yes, it has kept me from medical appointments or getting medications. 01/30/2025 Utilities Answer Date Recorded In the past 12 months, has t he electric, gas, oil or water company threatened to shut off services in your home? No 01/30/2025 Depression Answer Date Recorded Patient Health Questionnaire-2 Score 0 12/29/2022 Internet Access Answer Date Recorded Internet Access Q1 Yes 01/30/2025 Internet Access Q2 Not on file 01/30/2025 Comments Unknown Sex and Gender Information Value Date Recorded Sex Assigned at Female 07/31/2022 10:14 AM EDT Legal Sex Female 10:14 AM EDT Gender Identity Female 07/31/2022 10:14 AM EDT Sexual Orientation Straight 07/31/2022 10 :14 AM EDT Last Filed Vital Signs Vital Sign Reading Time Taken Comments Blood Pressure 138/70 02/05/2025 2:22 PM EDT Pulse 66 02/05/2025 2:22 PM EDT Temperature 36.1 ??C (96.9 ??F) 02/05/2025 2:22 PM ED T Respiratory Rate 16 02/05/2025 2:22 PM EDT Oxygen Saturation 98% 02/05/2025 2:22 PM EDT Inhaled Oxygen Concentration - - Weight 91.7 kg (202 lb 4 oz) 02/05/2025 2:22 PM EDT Height 154.9 cm (5' 1 ) 02/05/2025 2:22 PM EDT Body Mass Index 38.21 02/05/2025 2:22 PM EDT Plan of Treatment Upcoming Encounters Date Type Department Care Team (Late st Contact Info) Description 02/24/2025 11:00 AM EDT Office Visit [facility] ADULT DENTAL [address] [place] [address] Marita Quiroga 03/05/2025 10:30 AM EDT Office Visit [facility] ADULT DENTAL [address] [place] [address] Efren Atkins DDS [address] [place] [address] 05/07/2025 10:00 AM EDT Office Visit [facility] MEDICINE [address] [place] [address] Nasrin Alvarenga MD [address] [place] [address] Health Maintenance Due Date Last Done Comments CT Colonography 1950 FIT DNA/Cologuard 1950 FIT 1950 FOBT 1950 Sigmoidoscopy 1950 Alcohol/Substance Use Screening 1964 Depression Screening 12/30/2023 12/29/2022, 12/30/19 Diabetes: Urine Protein Screening 01/12/2024 01/11/2023, 11/26/2020 Diabetes: Foot Exam 03/09/2024 03/09/2023, COVID-19 Vaccine ( season) 2024 11/21/2023, 07/06/2022, 05/23/2022, Additional history exists Dental Prophylaxis 08/31/2024 02/28/2024, 1 11/21/2020, 04/06/2015 Dental Oral Exam 12/16/2024 06/17/2024, 10/09/2008 Dental X-Ray: Bitewings 02/28/2025 02/28/2024, 12/23 Diabetes: Hemoglobin A1C 05/08/2025 025, 02/06/2024, 09/04/2023, Additional history exists Mammogram 05/21/2025 05/21/2024, 03/31, 07/08/2020, Additional history exists Eye Exam 06/18/2025 06/18/2023, 06/01, 06/18/2023, Additional history exists Lipid Panel 12/11/2025 12/11/2024, 12/30, 08/09/2020 SDOH Screening 01/30/2026 01/30/2025 Tobacco Screening 02/05/2026 02/05/2025 Dental X-Ray: Full Mouth 06/18/2027 06/17/2024, 11/30 RSV Patients and Patients Aged 60 years or older (1 - 1-dose 75+ series) 2027 Colonoscopy 12/21/2030 12/21/2020 Colorectal Cancer Screening 12/21/2030 DTaP/Tdap/Td Vaccines (3 - Td or Tdap) 08/15/2034 08/15/2024, 01/29/2012, 01/12/2006, Additional history exists Influenza Vaccine Completed 05/27/2024, , 06/25/2023, Additional history exists Pneumococcal Vaccine: 50+ Years Completed 2024, 03/09/2023, 11/25/2018, Additional history exists Zoster Vaccines Completed 11/24/2024, 12/2023, 09/04/2023, Additional history exists Hepatitis C Screening Completed 12/11/2024 HIB Vaccines Aged Out No longer eligi [...] Author Blood Pressure < 140/90 Blood Pressure 138/70(2024 2:22 PM EDT) No Davin Duckworth, PharmD Hemoglobin A1c < 7 Result Component 7.3( 2:25 PM EDT) No Davin Duckworth PharmD Procedures Procedure Name Priority Date/Time Associated Diagnosis Comments POCT GLYCATED HEMOGLOBIN, TOTAL Routine 02/05/2025 2:25 PM EDT Type 2 diabetes mellitus with diabetic polyneuropathy, with long-term current use of insulin ([facility]) POCT GLUCOSE Routine 02/05/2025 2:23 PM EDT Type 2 diabetes mellitus with diabetic polyneuropathy, with long-term current use of insulin (CMS/HCC) NO CHARGE VISIT Routine 01/20/2025 1:30 PM EDT HEPATITIS B SURFACE ANTIBODY, QUALITATIVE Routine 12/11/2024 2:51 PM EDT Primary hypertension Encounter for screening for other viral diseases HEPATITIS C AB W/REFL TO HCV RNA, QN, PCR Routine 12/11/2024 2:51 PM EDT Essential hypertension Type 2 diabetes mellitus with hyperglycemia, with long-term current use of insulin (CMS/HCC) HEPATIC FUNCTION PANEL Routine 2:51 PM EDT Essential hypertension Type 2 diabetes mellitus with hyperglycemia, with long-term current use of insulin (CMS/HCC) LIPID PANEL, STANDARD Routine 12/11/2024 2:51 PM EDT Essential hypertension Type 2 diabetes mellitus with hyperglycemia, with long-term current use of insulin (CMS/HCC) BASIC METABOLIC PANEL Routine 12/11/2024 2:51 PM EDT Essential hypertension Type 2 diabetes mellitus with hyperglycemia, with long-term current use of insulin (CMS/HCC) PANORAMIC RADIOGRAPHIC IMAGE Routine 06/17/2024 11:00 AM [...] RADIOGRAPHIC IMAGES Routine 02/28/2024 8:00 AM EDT ALBUMIN, RANDOM URINE W/O CREATININE Routine 01/11/2023 8:53 AM EDT Essential hypertension Type 2 diabetes mellitus with hyperglycemia, with long-term current use of insulin (CMS/HCC) HM COLONOSCOPY Routine 12/21/2020 from Last 3 Months or Most Recently Relevant to Health Maintenance Results * (ABNORMAL) POCT HGB A1C (02/05/2025 2:25 PM EDT) [facility] Hemoglobin A1C 7.3(A) 4.0 - 6.0 % QC Media Lot # [id number] Lot# Expiration Date ,727 Blood 02/05/2025 2:25 PM EDT Nasrin Haas MD POINT OF CARE TEST EN TER/EDIT ORDERABLES Final Result * (ABNORMAL) POCT Glucose (02/05/2025 2:23 PM EDT) [facility] Glucose Blood, POC 228(A) 60 - 200 mg/dL QC Media Lot # [id number] Lot# Expiration Date 101,526 Blood Capillary blood specimen / Unknown 02/05/2025 2:23 PM EDT Nasrin Haas MD POINT OF CARE TEST EN TER/EDIT ORDERABLES Final Result * Hepatitis C Antibody with Reflex to HCV, RNA, Quantitative, Real-Time PCR (12/11/2024 2:51 PM EDT) [facility] Hepatitis C Antibody Nonreactive Nonreactive [facility] Comment:Antibodies to HCV no t detected; does not exclude early acuteHCV infection. Blood Venous blood specimen / Unknown 12/11/2024 2:51 PM EDT 12/11/2024 4:06 PM EDT Nasrin Haas MD LAB BLOOD ORDERABLES Final Result [facility] [address] [place] [phone] * Hepatitis B Surface Antibody, Qualitative (12/11/2024 2:51 PM EDT) [facility] ~Hepatitis B Surface Antibody REACTIVE Nonreactive [facility] Comment:REACTIVE: > 11.99 mI U/mL Blood Venous blood specimen / Unknown 12/11/2024 2:51 PM EDT 12/11/2024 4:06 PM EDT us Nasrin Haas MD LAB BLOOD ORDERABLES Final Result Performing Organization Address [facility] Co ma Phone Number [facility] [address] [place] [phone] * (ABNORMAL) Hepatic Function Panel (12/11/2024 2:51 PM EDT) Bilirubin, Total 0.3 0.0 - 1.0 mg/dL [facility] Bilirubin, Direct 0.1 0.0 - 0.5 mg/dL [facility] Aspartate Amino Transferase 40(H) 5 - 31 U/L [facility] Alanine Aminotransferase 26 0 - 31 U/L [facility] Total Protein 8.1(H) 6.5 - 8.0 g/dL [facility] Albumin Level 3.9 3.5 - 5.0 g/dL [facility] Alkaline Phosphatase 92 39 - 117 U/L [facility] Blood Venous blood specimen / Unknown 12/11/2024 2:51 PM EDT 12/11/2024 4:06 PM EDT us Nasrin Haas MD LAB BLOOD ORDERABLES Final Result Performing Organization Address [facility]/ZIP Co de Phone Number [facility] [address] [place] [phone] * Lipid Panel, Standard (12/11/2024 2:51 PM EDT) Triglycerides 104 <150 mg/dL [facility] Comment:Desirable Triglyceri de: less than 150 mg/dLBorderline High Triglyceride 150-199 mg/dLHigh Triglyceride: 200-499 mg/dLVery High Triglyceride: greater than or equal to 5OO mg/dL Cholesterol 105 <200 mg/dL [facility] Comment:Desirable Cholestero l: less than 200 mg/dLBorderline High Cholesterol: 200-239 mg/dLHigh Cholesterol: greater than 239 mg/dL LDL Cholesterol Calculated 41 <100 mg/dL [facility] Comment:Desirable LDL: less than 100 mg/dLNear Optimal/Above Optimal LDL: 110- 129 mg/dLBorderline High LDL: 130-159 mg/dLHigh LDL: 160-189 mg/dLVery High LDL: greater than or equal to 190 mg/dL HDL Cholesterol 44 >40 mg/dL [facility] Comment:Desirable HDL: great er than 40 mg/dL Note: This HDL assay may give artificially low results in patients with liver disease. Blood Venous blood specimen / Unknown 12/11/2024 2:51 PM EDT 12/11/2024 4:06 PM EDT us Nasrin Haas MD LAB BLOOD ORDERABLES Final Result [facility] [address] [place] [phone] * (ABNORMAL) Basic Metabolic Panel (12/11/2024 2:51 PM EDT) Sodium 140 135 - 145 mmol/L [facility] Potassium 5.1 3.3 - 5.1 mmol/L [facility] Chloride 107 96 - 108 mmol/L [facility] Carbon Dioxide 26 22 - 29 mmol/L [facility] Anion Gap 12 12 - 20 [facility] Urea Nitrogen (BUN) 37(H) 9 - 16 mg/dL [facility] Creatinine, Serum 1.25 0.5 - 1.4 mg/dL [facility] Estimated Glomerular Filt Rate 42 [facility] Comment:Chronic Kidney Disea se: Estimated GFR < 60 mL/min/1.02w2Ydzjwf Kidney Disease: Estimated GFR < 15 mL/min/1.73m2 Glucose 227(H) 60 - 115 mg/dL [facility] Calcium 9.7 8.4 - 10.2 mg/dL [facility] Blood Venous blood specimen / Unknown 12/11/2024 2:51 PM EDT 12/11/2024 4:06 PM EDT us Nasrin Haas MD LAB BLOOD ORDERABLES Final Result [facility] [address] [facility] [place] [address] [phone] * BI Mammogram Screening Tomosynthesis Bilateral (05/21/2024 12:15 PM EDT) Anatomical Region Laterality Modality Breast Bilateral Mammography 05/21/2024 12:1 5 PM EDT Narrative 06/18/2024 9:15 PM EDT ? [facility] [place] ? [address] ?[place] [id number] ? Mammography Report ? Signed ? Patient: Anabel Avalos ?MR#: [id number] ?? [id number] ? : 1950 ?Acct:[id number] ? Age/Sex: 73 / F ?ADM Date: 05/21/24 ? Loc: HO.MAMMO ? Attending Dr: Nasrin Haas MD ? Ordering Physician: Nasrin Alvarenga MD ?Results: ?? 1Negative ? Date of Service: 05/21/24 ?Follow Up: 1 Year From Orig ?? inal Mammogram ? Procedure(s): MM tomosynthesis screening BI ?? Accession Number(s): [id number] ? cc: Nasrin Alvarenga MD ? EXAMINATION: [...] by Giuliana Davis, DO in OV> ? 06/18/24 2112 ? DD/ 1215 ? TD/TT: 05/21/24 1235 ? Equity Sales Assistant: ? Procedure Note Mai Jolley - 06/18/2024 [facility] [address] [place] [address] Dr. [place], [place] [id number] Mammography Report Signed Patient: Anabel Avalos MMR#: [id number] : 2Acct:[id number] Age/Sex: 73 / FADM Date: 05/21/24 Loc: HO.MAMMO Attending Dr: Nasrin Haas MD Ordering Physician: Nasrin Alvarenga MDResults: 1Negative Date of Service: 05/21/24Follow Up: 1 Year From Orig inal Mammogram Procedure(s): MM tomosynthesis screening BI Accession Number(s): [id number] cc: Nasrin Alvarenga MD EXAMINATION: MM SCREENING [...] Giuliana Davis DO 06/18/2024 09:12 PM EDT Dictated By: Giuliana Davis DO Signed By: <Electronically signed by Giuliana Davis DO in OV> 06/18/24 2112 DD/ 1215 TD/TT: 05/21/24 1235 Equity Sales Assistant: us Nasrin Haas MD IMG BI PROCEDURES Fin al Result * Albumin, Random Urine W/O Creatinine (01/11/2023 8:53 AM EDT) Albumin, Urine 0.7 See Note: mg/dL [facility] Comment: Reference Range: Reference Range Not established [facility] [place] [employer] Comment: The ADA defines abnormalities in albumin [...] 01/12/2023 1:12 AM EDT FASTING:YES FASTING: YES Nasrin Haas MD LAB URINE ORDERABLES Final Result [facility] [address], [place] [address] [place] [facility] [address] [place] [phone] * Colonoscopy (12/21/2020) Colonoscopy Normal Normal Narrative Heidi Cornell - 12/21/2020 Recommended 10 year follow up Historical Provider HEALTH MAINTENANCE Final Result from Last 3 Months or Most Recently Relevant to Health Maintenance Insurance [facility] FULL MEDICARE [facility] STANDARD DENTAL-[facility] MEDICAID STAND ADULT Care Teams Senior Energy Consultant Relationship Specialty Start Date End Date Nasrin Alvarenga MD [address] [place] [phone] PCP - General Family Medicine 07/24/19
--- OUTSIDE RECORDS SUMMARY | 2025-02-05 15:39 | XMS_ITS | Encounter Summary ---
Author Organization [employer] Address [address] [place] [address] Care Team Providers Care Lumber Sorter Name Role Phone Nasrin Alvarenga MD Primary Care Provide r Reason for Referral * Consultation (Routine) - Pending Review Specialty Diagnoses / Procedures Referred By Jacob pope Referred To Contact Podiatry Diagnoses Type 2 diabetes mellitus with diabetic polyneuropathy, with long-term current use of insulin ([facility]) Nasrin Alvarenga MD [address] [place] [address] Phone: tel: fax: Referral ID Status Reason Start Date Expiration Date Visits Requested Visits Authorized [id number] Pending Review Specialty Services Required 02/05/2025 02/05/2026 1 1 * Consultation (Routine) - Pending Review Specialty Diagnoses / Procedures Referred By Jacob pope Referred To Contact Physical Therapy Diagnoses Chronic left-sided low back pain without sciatica Left hip pain Nasrin Alvarenga MD [address] [place] [address] Phone: tel: fax: Referral ID Status Reason Start Date Expiration Date Visits Requested Visits Authorized [id number] Pending Review Specialty Services Required 02/05/2025 02/05/2026 1 1 Reason for Visit * Reason Comments Follow-up Encounter Details Date Type Department Care Team (Late st Contact Info) Description 02/05/2025 2:30 PM EDT Office Visit [facility] [address] [place] [address] Nasrin Alvarenga MD [address] [place] [address] Essential hypertension; Chronic left-sided low back pain without sciatica; Left hip pain; Type 2 diabetes mellitus with diabetic polyneuropathy, with long-term current use of insulin ([facility]) Social History Tobacco Use Types Packs/Day Years [...] AM EDT documented as of this encounter Last Filed Vital Signs Vital Sign Reading [...] Mass Index 38.21 02/05/2025 2:22 PM EDT documented in this encounter Plan of Treatment Upcoming Encounters Date Type Department Care Team (Late st Contact Info) Description 02/24/2025 11:00 AM EDT Office Visit [facility] [address] [place] [address] Marita Quiroga 03/05/2025 10:30 AM EDT Office Visit [facility] [address] [place] [address] Efren Atkins DDS [address] [place] [address] 05/07/2025 10:00 AM EDT Office Visit [facility] [address] [place] [address] Nasrin Alvarenga MD [address] [place] [address] Scheduled Orders Name Type Priority Associated Diagnoses Orde r Schedule XR Lumbar Spine 2-3 Views Imaging Routine Chronic left-sided low back pain without sciatica Left hip pain Expected: 02/05/2025, Expires: 02/05/2026 XR Hip 2 or 3 Views Left Imaging Routine Chronic left-sided low back pain without sciatica Left hip pain Expected: 02/05/2025, Expires: 02/05/2026 Scheduled Referrals Name Type Priority Associated Diagnoses Orde r Schedule Referral to Physical Therapy Outpatient Referral Routine Chronic left-sided low back pain without sciatica Left hip pain Expected: 02/05/2025 (Approximate), Expires: 02/05/2026 Referral to Podiatry Outpatient Referral Routine Type 2 diabetes mellitus with diabetic polyneuropathy, with long-term current use of insulin ([facility]) Expected: 02/05/2025 (Approximate), Expires: 02/05/2026 documented as of this encounter Goals Goal Patient Goal Type Associated Problems Recent Progress Patient-Stated? Author Blood Pressure < 140/90 Blood Pressure 138/70(2024 2:22 PM EDT) No Davin Duckworth, Gabby Hemoglobin A1c < 7 Result Component 7.3( 2:25 PM EDT) No Davin Duckworth PharmD documented as of this encounter Procedures Procedure Name Priority Date/Time Associated Diagnosis Comments POCT GLYCATED HEMOGLOBIN, TOTAL Routine 02/05/2025 2:25 PM EDT Type 2 diabetes mellitus with diabetic polyneuropathy, with long-term current use of insulin ([facility]) POCT GLUCOSE Routine 02/05/2025 2:23 PM EDT Type 2 diabetes mellitus with diabetic polyneuropathy, with long-term current use of insulin ([facility]) documented in this encounter Results * (ABNORMAL) POCT HGB A1C (02/05/2025 2:25 PM EDT) Hemoglobin A1C 7.3(A) 4.0 - 6.0 % QC Media Lot # [id number] Lot# Expiration Date 11,727 Blood 02/05/2025 2:25 PM EDT Nasrin Haas MD POINT OF CARE TEST EN TER/EDIT ORDERABLES Final Result * (ABNORMAL) POCT Glucose (02/05/2025 2:23 PM EDT) Glucose Blood, POC 228(A) 60 - 200 mg/dL QC Media Lot # [id number] Lot# Expiration Date 101,526 Blood Capillary blood specimen / Unknown 02/05/2025 2:23 PM EDT Nasrin Haas MD POINT OF CARE TEST EN TER/EDIT ORDERABLES Final Result documented in this encounter Visit Diagnoses Diagnosis Essential hypertension Unspecified essential hypertension Chronic left-sided low back pain without sciatica Left hip pain Pain in joint, pelvic region and thigh Type 2 diabetes mellitus with diabetic polyneuropathy, with long-term current use of insulin ([facility]) documented in this encounter Additional Health Concerns Assessment Noted Time PHQ-9 Depression Total Score: 0 12/30/19 23 11:42 AM EDT documented as of this encounter Care Teams Lumber Sorter Relationship Specialty Start Date End Date Nasrin Alvarenga MD [address] [place] [address] PCP - General Family Medicine 07/24/19 documented as of this encounter
--- OUTSIDE RECORDS SUMMARY | 2025-02-05 15:39 | XMS_ITS | Encounter Summary ---
Author Organization [employer] Address [address] [facility] [address] [place] [address] Care Team Providers Care Shipping Receiving Manager Name Role Phone Nasrin Alvarenga MD Primary Care Provide r Reason for Visit * Reason Onset Date Comments Chart Prep 02/04/2025 Encounter Details Date Type Department Care Team ([facility] st Contact Info) Description 02/04/2025 Telephone [facility] [address] [place] [address] Nasrin Alvarenga MD [address] [place], [place] [phone] Chart Prep Social History Tobacco Use Types Packs/Day Years Used Date Smoking Tobacco: Never Passive Smoke Exposure: Never Smokeless Tobacco: Never Alcohol Use Standard Drinks/Week Comments Never 0 (1 standard drink = 0.6 oz pur e alcohol) Depression Answer Date Recorded Patient Health Questionnaire-9 Score 0 12/29/2022 Housing Stability Answer Date Recorded What is your housing situation today? I have grant leslie 01/30/[address] you li [...] AM EDT documented as of this encounter Miscellaneous Notes * Telephone Encounter - Amara Lemus [place] - 02/04/2025 1:36 PM EDT Chart Prep Labs: done Images: done Referrals: not applicable Vaccines due: Covid, Flu, and Tdap Screenings: foot exam Overdue care gaps: A1c, Glucose, SBIRT, PHQ-9, and LISA-7 documented in this encounter Plan of Treatment Upcoming Encounters Date Type Department Care Team (Late st Contact Info) Description 02/24/2025 11:00 AM EDT Office Visit [facility] [address] [place] [address] Marita Quiroga 03/05/2025 10:30 AM EDT Office Visit [facility] [address] [place] [address] Efren Atkins DDS [address] [place] [address] 05/07/2025 10:00 AM EDT Office Visit [facility] [address] [place] [address] Nasrin Alvarenga MD [address] [place] [address] documented as of this encounter Goals Goal Patient Goal Type Associated Problems Recent Progress Patient-Stated? Author Blood Pressure < 140/90 Blood Pressure 138/70(2024 2:22 PM EDT) No Davin Duckworth PharmD Hemoglobin A1c < 7 Result Component 7.3( 2:25 PM EDT) No Davin Duckworth PharmD documented as of this encounter Visit Diagnoses Not on filedocumented in this encounter Additional Health Concerns Assessment Noted Time PHQ-9 Depression Total Score: 0 12/30/19 23 11:42 AM EDT documented as of this encounter Care Teams Shipping Receiving Manager Relationship Specialty Start Date End Date Nasrin Alvarenga MD [address] [place] [address] PCP - General Family Medicine 07/24/19 documented as of this encounter
--- OUTSIDE RECORDS SUMMARY | 2025-02-05 15:39 | XMS_ITS | Encounter Summary ---
Author Organization [employer] Address [address] [facility] [address] [place] [address] Care Team Providers Care Head Waiter Name Role Phone Nasrin Alvarenga MD Primary Care Provide r Reason for Visit * Reason Comments Med Change Request Encounter Details Date Type Department Care Team ([facility] st Contact Info) Description 12/19/2024 Refill [facility] [address] [place], [place] [phone] Nasrin Alvarenga MD [address] [place], [place] [phone] Type 2 diabetes mellitus without complication, with long-term current use of insulin ([facility]) Social History Tobacco Use Types [...] Description 02/24/2025 11:00 AM EDT Office Visit [facility] [address] [place] [address] Marita Quiroga 03/05/2025 10:30 AM EDT Office Visit [facility] [address] [place] [address] Efren Atkins DDS [address] [place] [address] 05/07/2025 10:00 AM EDT Office Visit [facility] [address] [place] [address] Nasrin Alvarenga MD [address] [place] [address] documented as of this encounter Goals Goal Patient Goal Type Associated Problems Recent Progress Patient-Stated? Author Blood Pressure < 140/90 Blood Pressure 138/70(2024 2:22 PM EDT) No Davin Duckworth PharmD Hemoglobin A1c < 7 Result Component 7.3( 2:25 PM EDT) No Davin Duckworth PharmD documented as of this encounter Visit Diagnoses Diagnosis Type 2 diabetes mellitus without complication, with long-term current use of insulin ([facility]) documented in this encounter Additional Health Concerns Assessment Noted Time PHQ-9 Depression Total Score: 0 12/30/19 23 11:42 AM EDT documented as of this encounter Care Teams Head Waiter Relationship Specialty Start Date End Date Nasrin Alvarenga MD [address] [place] [address] PCP - General Family Medicine 07/24/19 documented as of this encounter
--- OUTSIDE RECORDS SUMMARY | 2025-02-05 15:39 | XMS_ITS | Encounter Summary ---
Author Organization [employer] Address [address] [facility] [address] [place] [address] Care Team Providers Care Certified Nuclear Medicine Technologist Name Role Phone Nasrin Alavrenga MD Primary Care Provide r Encounter Details Date Type Department Care Team (Late Contact Info) Description 02/28/2023 Orders Only [facility] [address] [place] [address] Tati Sampson LPN Social History Tobacco Use [...] Encounters Date Type Department Care Team (Late Contact Info) Description 02/24/2025 11:00 AM EDT Office Visit [facility] [address] [place], [place] [phone] Marita Quiroga 03/05/2025 10:30 AM EDT Office Visit [facility] [address] [place] [address] Efren Atkins DDS [address] [place], [place] [phone] 05/07/2025 10:00 AM EDT Office Visit [facility] [address] [place] [address] Nasrin Alvarenga MD [address] [place] [address] documented as of this encounter Visit Diagnoses Not on filedocumented in this encounter Additional Health Concerns Assessment Noted Time PHQ-9 Depression Total Score: 0 12/30/19 23 11:42 AM EDT documented as of this encounter Care Teams Certified Nuclear Medicine Technologist Relationship Specialty Start Date End Date Nasrin Alvarenga MD [address] [place] [address] PCP - General Family Medicine 07/24/19 documented as of this encounter
--- OUTSIDE RECORDS SUMMARY | 2025-02-05 15:39 | XMS_ITS | Encounter Summary ---
Author Organization [employer] Address [address] [facility] [address] [place] [address] Care Team Providers Care Gravity Flow Irrigator Name Role Phone Nasrin Alvarenga MD Primary Care Provide r Encounter Details Date Type Department Care Team (Late st Contact Info) Description 07/11/2023 Abstract [facility] [address] [place], [place] [phone] Nasrin Alvarenga MD [address] [place], [place] [phone] Social History Tobacco Use Types Packs/Day Years [...] Description 02/24/2025 11:00 AM EDT Office Visit [facility] [address] [place] [address] Marita Quiroga 03/05/2025 10:30 AM EDT Office Visit [facility] [address] [place] [address] Efren Atkins DDS [address] [place] [address] 05/07/2025 10:00 AM EDT Office Visit [facility] [address] [place] [address] Nasrin Alvarenga MD [address] [place] [address] documented as of this encounter Procedures Procedure [...] documented as of this encounter Care Teams Gravity Flow Irrigator Relationship Specialty Start Date End Date Nasrin Alvarenga MD [address] [place] [address] PCP - General Family Medicine 07/24/19 documented as of this encounter
== END 2025-02-05 15:03 | disposition home or self-care (01) ==
LOC: HO.HHCX 15:02
PROVIDERS: Visit Provider Internal Medicine
DX: M54.50 Low back pain, unspecified (principal); G89.29 Other chronic pain; M25.552 Pain in left hip
CPT/HCPCS: 72100; 73502

== ENCOUNTER → 2025-02-05 15:05 | Outpatient (BNV) | payer MEDICARE, MEDICAID, SELFPAY | PROVIDERS: Visit Provider Radiology Diagnostic Radiology | DX: M47.816 Spondylosis without myelopathy or radiculopathy, lumbar region (principal); M16.12 Unilateral primary osteoarthritis, left hip | CPT/HCPCS: 72100; 73502 ==

== ENCOUNTER 2025-05-04 13:24 | Emergency (ER) | payer OTHER, SELFPAY ==
--- NOTE | ~2025-05-04 | XR_ITS ---
EXAMINATION: XR FOOT, RIGHT CLINICAL INFORMATION: pain, injury, concern for FB COMPARISON: None available. TECHNIQUE: AP, lateral, and oblique views of the right foot. FINDINGS: Metallic or radiopaque foreign body. No acute cortical disruption or gross malalignment. Small plantar calcaneal spur. Small exostosis at the Achilles tendon insertion. Vascular calcifications. No joint effusion. No subcutaneous emphysema. XR/XR foot RT min 3V IMPRESSION: No foreign body. No acute fracture or dislocation. Atherosclerosis disease, peripheral. Mild enthesopathy, Achilles tendon. Electronically signed by: Jean Marie Dyer MD 05/04/2025 02:21 PM EDT
--- NOTE | 2025-05-04 13:36 | ED_ITS ---
HPI - General Adult General Chief complaint: Wound/Laceration Stated complaint: Foot injury Time Seen by Provider: 05/04/25 13:43 Source: patient Mode of arrival: ambulatory Limitations: no limitations History of Present Illness ED Provider: Fátima Smith PA-C HPI narrative: Patient is a 74 year old assigned female at with a history of DM presenting to the emergency department today with a right foot laceration. Patient states that she was in the closet, cleaning things, when she felt pain in her right foot and began to bleed. Patient denies any dizziness, lightheadedness, abdominal pain, nausea, vomiting, fever, chills, blurry vision, double vision, loss of vision, chest pain, difficulty breathing, shortness of breath, back pain, night sweats, pain with urination, increased urinary frequency, increased urinary urgency, blood in her urine or stool, syncope or a near syncopal episode, bowel incontinence, bladder incontinence, or any other complaints at this time. Relieving factors: none Exacerbating factors: none Associated symptoms: denies other symptoms Treatments prior to arrival: none Related Data Home Medications ?Medication ?Instructions ?Recorded ?Confirmed acetaminophen 325 mg capsule 650 mg PO Q6H PRN Pain 10/27/20 (Tylenol) calcium 500 mg (as 1 tab PO DAILY 09/06/2010/02 carbonate)-vitamin D3 5 mcg (200 unit) tablet (Calcium 500 + D) glipizide 10 mg tablet 20 mg PO BID 09/06/20 hydroxyzine HCl 50 mg tablet 50 mg PO BID 09/06/20 insulin detemir U-100 100 unit/mL 34 unit subcut BEDTI ME 09/06/20 10/27/20 (3 mL) subcutaneous pen (Levemir FlexTouch U-100 Insulin) lisinopril 20 2 tab PO DAILY 09/06/2010/02 mg-hydrochlorothiazide 12.5 mg tablet montelukast 10 mg tablet 10 mg PO BEDTIME 09/06/20 (Singulair) pioglitazone 15 mg tablet (Actos) 15 mg PO DAILY 09/0610/27/20 Previous Rx's ?Medication ?Instructions ?Recorded bisacodyl 5 mg tablet,delayed 10 mg (2 x 5 mg) PO ONCE 1 day #2 09/06/20 release (Dulcolax (bisacodyl)) tabs polyethylene glycol 3350 17 17 g PO ONCE #238 grams gram/dose oral powder (Miralax) naproxen 500 mg tablet 500 mg PO BID PRN pain #20 t abs 03/17/21 benzonatate 100 mg capsule 100 mg PO BID PRN cough #20 caps 09/23/23 prednisone 20 mg tablet 20 mg PO DAILY 5 days #5 tab s 09/23/23 cefuroxime axetil 500 mg tablet 500 mg PO BID #20 tabs 09/24/24 phenazopyridine 100 mg tablet 100 mg PO TID #6 tabs (Pyridium) cephalexin 500 mg capsule 500 mg PO Q6H 7 days #28 cap s 05/04/25 doxycycline hyclate 100 mg tablet 100 mg PO BID 7 days #14 tabs 05/04/25 Allergies Allergy/AdvReac Type Severity Reaction Status Date / Time metronidazole Allergy Unknown Unknown Verified 05/04/25 13:39 Review of Systems 2 Constitutional: Constitutional: Reports no additional constitutional complaints, Denies chills, Denies fever(s) and Denies night sweats Eyes: Eyes: Reports no additional eye complaints, Denies blurry vision, Denies change in vision, Denies diplopia, Denies eye discharge, Denies loss of vision and Denies eye pain ENT: Denies dizziness Cardiovascular: Cardiovascular: Reports no additional cardiovascular complaints, Denies chest pain, Denies lightheadedness, Denies Loss of Consciousness and Denies dyspnea Respiratory: Respiratory: Reports no additional respiratory complaints and Denies dyspnea Gastrointestinal: Gastrointestinal: Reports no additional gastrointestinal complaints, Denies abdominal pain, Denies melena, Denies hematochezia, Denies change in bowel habits and Denies change in stool character Genitourinary: Genitourinary: Denies hematuria, Denies urinary frequency, Denies dysuria, Denies urinary incontinence, Denies urinary hesitancy and Denies urinary urgency Musculoskeletal: Musculoskeletal: Reports no additional musculoskeletal complaints, Denies numbness and Denies tingling Comments: Right foot injury Neurologic: Denies dizziness, Denies loss of vision, Denies numbness and Denies tingling Psychiatric: Psychiatric: Reports no additional psychiatric complaints Endocrine: Endocrine: Reports no additional endocrine complaints Hematologic/Lymphatic: Hematologic/Lymphatic: Reports no additional hematologic/lymphatic complaints Allergic/Immunologic: Allergic/Immunologic: Reports no additional allergic/immunologic complaints [facility] Past Medical History Attestation statement: The following information was validated with the patient. Source: old records reviewed and nursing notes reviewed Medical History Osteoporosis GERD (gastroesophageal reflux disease) Peripheral neuropathy Osteoarthritis Anxiety Depression Elevated cholesterol HTN (hypertension) Diabetes mellitus Surgical History Hx of cholecystectomy Hx of endoscopy History of colonoscopy Family History Family History Father No problems noted. Mother No problems noted. Social History Social History Alcohol intake: never Advance Directives: No Advance Directives Information Provided: Yes Physical Exam ED Vital Signs: Vital Signs - 24 hr 05/04/25 13:39 05/04/25 15:00 Temperature 98.4 F Pulse Rate 71 71 Respiratory Rate 16 16 Blood Pressure 154/57 H 154/57 H Pulse Oximetry 99 99 Oxygen Delivery Method Room Air BMI result Body Mass Index 36.7 Const General: cooperative, no acute distress, alert and awake Nutritional Appearance: well nourished Orientation/consciousness: patient oriented x3 HENMT Head: Yes normal to inspection and Yes atraumatic Ears: hearing grossly normal bilaterally and external ears normal General nose exam: Normal external nose present, no nasal discharge noted and no epistaxis Face and sinus: Yes normal facial exam, No abrasion and No laceration Mouth: Normal oral and palatal mucosa present, no drooling and no muffled voice Eyes General: appearance normal, both eyes and all related structures Periorbital: periorbital findings normal Eyelids: Yes eyelids normal Conjunctivae: conjunctivae normal Pupils: Equal, round and reactive pupils present EOM: EOMs intact bilaterally Neck Neck: Yes normal visual inspection, Yes full ROM and Yes no lymphadenopathy Resp Effort & Inspection: normal respiratory effort and able to speak in complete sentences Neuro General: patient oriented x3, moves all extremities and CN's II-XI intact bilaterally Cranial nerves: Yes Equal, round and reactive pupils present Cognition (Neuro): normal cognition Extrem Other: General: Yes full ROM and Yes capillary refill normal Psych Appearance: grossly normal Mental Status: mental status grossly normal Affect: normal affect Attitude: cooperative Thought process: Normal thought process present Thought content: Normal thought content present Insight: Good insight present (Psych) Course Course Course Narrative: RME performed by Fátima Smith PA-C. Patient is a 74 year old assigned female at presenting to the emergency department with a right foot injury. Patient states that she was getting things out of her closet when she felt something sharp and her foot was bleeding. Detailed physical exam and review of systems are deferred to the fishing tool technician oil well. Imaging ordered. Patient placed back in the waiting room pending room availability and results. Medications Administered Discontinued Medications Generic Name Dose Route Start Last Admin Trade Name Freq PRN Reason Stop Dose Admin Diphtheria/Tetanus/Acell Pertussis 0.5 ml 05/04/25 13:43 05/04/25 14:52 Diphth,Pertus(Acell),Tet Adult 0.5 Ml Syringe IM 05/04/25 13:44 0.5 ml .ONCE ONE Administration Procedures Laceration Laceration 1: Site: lower extremity Side (If applicable): right Description: linear Depth: simple, single layer Pre-repair: wound explored, irrigated extensively and deep structures intact Skin layer closed with: other (dermabond) Size (cm): other Technique: other (dermabond) Medical Decision Making Medical Decision Making MDM Narrative: Patient is a 74 year old assigned female at with a history of DM presenting to the emergency department today with a right foot laceration. Patient's physical exam was as noted in the physical exam portion of this note. Patient's right foot x-ray showed no acute process or evidence of FB. I explained my physical exam findings as well as all test results to the patient. I answered all questions asked by the patient. Patient's wound was extensively irrigated. Patient's wound was repaired with dermabond, without incident. Patient's PMS was intact prior to and after dermabond placement. I stressed the importance of the patient taking her medication as directed (either prescribed or as the over the counter packaging recommends). I stressed the importance of the patient following up with her primary care provider. I stressed the importance of the patient returning to the emergency department immediately if her symptoms were to worsen or if she were to develop any dizziness, shortness of breath, difficulty breathing, chest pain, blurry vision, loss of vision, nausea, vomiting, abdominal pain, fever, chills, back pain, or any other complaints. Patient verbalized agreement and understanding with this treatment plan and discharge. Differential Diagnosis Differential Diagnoses: The differential diagnosis associated with the presentation includes Foot laceration Admission/Observation Consideration of admission/observation: Escalation of care including admission/observation considered Patient would have been admitted to the hospital had her work up had any findings where hospital admission was appropriate and her clinical presentation warranted hospital admission. Independent Interpretation I performed an independent interpretation of an: Plain X-Ray Interpretation: My interpretation is in agreement with the radiologist's impression of this imaging study. L EXAMINATION: XR FOOT, RIGHT CLINICAL INFORMATION: pain, injury, concern for FB COMPARISON: None available. TECHNIQUE: AP, lateral, and oblique views of the right foot. FINDINGS: Metallic or radiopaque foreign body. No acute cortical disruption or gross malalignment. Small plantar calcaneal spur. Small exostosis at the Achilles tendon insertion. Vascular calcifications. No joint effusion. No subcutaneous emphysema. XR/XR foot RT min 3V IMPRESSION: No foreign body. No acute fracture or dislocation. Atherosclerosis disease, peripheral. Mild enthesopathy, Achilles tendon. Electronically signed by: Jean Marie Dyer MD 05/04/2025 02:21 PM EDT RP Dictated By: Jean Marie Murrell MD Signed By: Electronically signed by Jean Marie Fairbanks MD 05/04/25 1421 Radiology Impression Discussion of test interpretation with radiology: I have reviewed the radiologist's reading. Prescription Management I considered prescription management with: Antibiotic (Given patient is a diabetic - treating with prophylactic antibiotic) Chronic Conditions Patient?s care impacted by: Diabetes Discharge Plan Discharge Clinical Impression: Laceration Patient Disposition: Home, Self-Care Instructions: Skin Adhesive Care (ED) Additional Instructions: Do NOT get the affected area wet for at least 7 days. Follow up with your primary care provider. Return to the emergency department immediately if your symptoms worsen or if you develop any dizziness, shortness of breath, difficulty breathing, chest pain, blurry vision, loss of vision, nausea, vomiting, abdominal pain, fever, chills, back pain, or any other complaints. Samira?seguimiento?con florez m?dico de atenci?n primaria. Acuda inmediatamente al servicio de urgencias si willis s?ntomas empeoran o si presenta falta de aliento, dificultad para respirar, dolor tor?cico, mareos, aturdimiento, dolor de espalda, dolor abdominal, fiebre, escalofr?os o cualquier otro s?ntoma. If you do not have a primary care provider - call any of the below numbers to establish and follow up with a primary care provider. Si no tiene un proveedor de atenci?n primaria, llame a cualquiera de los n?meros que aparecen a continuaci?n para establecer y hacer seguimiento con un proveedor de atenci?n primaria. [facility] Primary Care ([place]) [phone] [facility] [place], [address] [facility] Primary Care ([address] [place]) [phone] [place] [address], [address] [facility], [address] [facility] Primary Care ([address] [place]) [phone] [place] [address], [address] [facility], [address] [facility] Primary Care ([place]) [phone] [place] [address], [address] [facility], [address] [facility] Family Medicine [phone] [address] [place], [address] Please see the information below about our Patient Portal. If you are not yet enrolled in the [facility] Patient Portal, you will receive an enrollment email invitation following your visit to any [facility] care setting. You may also self-enroll in the Patient Portal by visiting our website: [email or web address] The following information is required to access the Patient Portal: - Your [facility] Medical Record Number - Your personal home email address (must match what is in your electronic medical record, Registration staff can assist with this) - Name - Date of Capabilities of the Patient Portal: - Message some providers - View upcoming appointments - Access your health summary, medical history, and visit history - View current conditions and allergies - View procedure and lab results - View your medications, including guidelines, side effects, and precautions - Complete pre-appointment questionnaires requested by your provider - Ready summary reports of your office visits and procedures To access the Patient Portal Mobile Brett, follow these directions: - Search [employer] in the Brett Store or IWT Store - Download the Brett - Search for [facility] - Enter your login/password Portal del paciente Si usted no esta inscrito en el portal de pacientes de [facility], recibira cayetano invitacion de inscripcion despues de florez visita al [facility] o al [facility] via correo electronico. Tambien puede inscribirse voluntariamente en el portal de pacientes visitando nuestra pagina web: [email or web address] La siguiente informacion sera requerida para acceder al portal: - Florez claudia de historia medica de [facility] - Florez direccion de correo electronico personal - Nombre - Fecha de nacimiento Capacidades: Las siguientes capacidades estan disponibles en el portal de pacientes: - Enviar mensajes a algunos doctores - Verificar proximas citas - Acceso a florez historial de mckayla, registro medico e historial de visitas - Hans las condiciones actuales y alergias hans procedimientos y resultados del laboratorio - Hans willis medicamentos, incluyendo las pautas - Efectos secundarios y precauciones - Completar o llenar formularios / cuestionarios de - Citas solicitadas por florez doctor - Leer los resumenes de reportes medicos de willis visitas y procedimientos Farheen acceder a la aplicacion movil: - [employer] [facility] en la Brett Store o IWT Store - Descargue la aplicacion - [facility] - Ingrese florez nombre de usuario / Contrasena Prescriptions: New cephalexin 500 mg capsule 500 mg PO Q6H 7 Days Qty: 28 0RF doxycycline hyclate 100 mg tablet 100 mg PO BID 7 Days Qty: 14 0RF No Action naproxen 500 mg tablet 500 mg PO BID PRN (Reason: pain) Qty: 20 0RF benzonatate 100 mg capsule 100 mg PO BID PRN (Reason: cough) Qty: 20 0RF prednisone 20 mg tablet 20 mg PO DAILY 5 Days Qty: 5 0RF cefuroxime axetil 500 mg tablet 500 mg PO BID Qty: 20 0RF phenazopyridine [Pyridium] 100 mg tablet 100 mg PO TID Qty: 6 0RF acetaminophen [Tylenol] 325 mg capsule 650 mg PO Q6H PRN (Reason: Pain) calcium carbonate-vitamin D3 [Calcium 500 + D] 500 mg(1,250mg) -200 unit tablet 1 tab PO DAILY montelukast [Singulair] 10 mg tablet 10 mg PO BEDTIME lisinopril-hydrochlorothiazide 20-12.5 mg tablet 2 tab PO DAILY glipizide 10 mg tablet 20 mg PO BID pioglitazone [Actos] 15 mg tablet 15 mg PO DAILY hydroxyzine HCl 50 mg tablet 50 mg PO BID Levemir FlexTouch U100 Insulin 100 unit/mL (3 mL) insulin pen 34 unit subcut BEDTIME bisacodyl [Dulcolax (bisacodyl)] 5 mg tablet,delayed release (DR/EC) 10 mg PO ONCE 1 Days Qty: 2 0RF Rx Instructions: take 2 tabs at noon the day before your colonoscopy polyethylene glycol 3350 [Miralax] 17 gram/dose powder 17 g PO ONCE Qty: 238 0RF Rx Instructions: As directed by gastroenterology department at [facility] Interventions: ED Discharge Assessment Last Done: 05/04/25 15:00 Discharge Date/Time: 05/04/25 15:00 Print Language: Omani
[2025-05-04 13:39] VITALS: BP 154/57; PULSE 71; RESP 16; O2SAT 99; BMI 36.7
--- OUTSIDE RECORDS SUMMARY | 2025-05-04 14:48 | XMS_ITS | Clinical Summary ---
Author Organization [address] [facility] Address [address] [place] [address] Phone Care Team Providers Care Reheat Furnace Operator Name Role Phone Nasrin Alvarenga MD Primary Care Provide r Social History Tobacco Use Types Packs/Day Years Used Date Smoking Tobacco: Never Assessed Comments Unknown Sex and Gender Information Value Date Recorded Sex Assigned at Not on file Legal Sex Female 12:16 PM EDT Gender Identity Not on file Sexual Orientation Not on file Plan of Treatment Upcoming Encounters Date Type Department Care Team ([facility] Contact Info) Description 05/07/2025 1:45 PM EDT Consult Orthopedic Surgery - [place] [address] [phone] Tor Yousif DPM [address] [address] Health Maintenance Due Date Last Done Comments Breast Cancer Screening 1950 Diabetes: Annual GFR (Glomer ular Filtration Rate) 1952 Diabetes: Annual Foot Exam 1962 Diabetes: Annual Retina Eye Exam 1962 DTaP,Tdap,and Td Vaccines (1 - Tdap) 1971 Pneumococcal Vaccine: 50+ Ye ars (1 of 2 - PCV) 1971 Zoster Vaccines (1 of 2) 2002 RSV Immunization Adult Patie nts (1 - Risk 60-74 years 1-dose series) 2012 COVID-19 Vaccine ( - 2023-2 5 season) 2024 Depression Screening 10/01/2024 Cholesterol Screening (Lipid Panel) 02/13/2025 Colorectal Cancer Screening: Colonoscopy 02/13/2025 Diabetes: Annual Urine Albumin-Creatinine Ratio (uACR) 02/13/2025 Diabetes: Blood Sugar Contro l Test (HGBA1C) 02/13/2025 Falls Risk Assessment 02/13/2025 Hepatitis C Screening 02/13/2025 Medicare Annual Wellness Visit 02/13/2025 Osteoporosis Screening (Bone Density Screening) 02/13/2025 Social Influencers of Health Screening 02/13/2025 Influenza Vaccine (#1) 2025 HIB Vaccines Aged Out No longer eligi [...] on patient's age to complete this topic MMR Vaccines Aged Out No longer eligi ble based on patient's age to complete this topic Meningococcal ACWY Vaccine Aged Out N o longer eligible based on patient's age to complete this topic Meningococcal B Vaccine Aged Out No l onger eligible based on patient's age to complete this topic RSV Immunization Patients Un gianfranco 20 months Aged Out No longer eligible b ased on patient's age to complete this topic Varicella Vaccines Aged Out No longer eligible based on patient's age to complete this topic Insurance MEDICARE [place]ICAID - [place] Care Teams Reheat Furnace Operator Relationship Specialty Start Date End Date Nasrin Alvarenga MD [address] [place] [phone] PCP - General Internal Medicine 02/13/25
--- OUTSIDE RECORDS SUMMARY | 2025-05-04 14:48 | XMS_ITS | Encounter Summary ---
Author Organization [facility] Address [address] [place] [address] 7 [place] [address] Care Team Providers Care Caramel Candy Maker Helper Name Role Phone Nasrin Alvarenga MD Primary Care Provide r Reason for Referral * Consultation (Routine) - Authorized Specialty Diagnoses / Procedures Referred By Contac t Referred To Contact Physical Therapy Diagnoses Left hip pain Chronic left-sided low back pain without sciatica Nasrin Alvarenga MD [address] [place] [address] Phone: tel: fax: [facility] Physical Therapy [address] [place] [address] Phone: tel: fax: Referral ID Status Reason Start Date Expiration Date Visits Requested Visits Authorized [id number] Authorized Specialty Services Required 02/09/2025 02/09/2026 1 1 Encounter Details Date Type Department Care Team (Late st Contact Info) Description 02/09/2025 Orders Only [facility] [address] [place] [phone] Nasrin Alvarenga MD [address] [place], [place] [phone] Left hip pain; Chronic left-sided low back pain without sciatica Social History Tobacco Use Types Packs/Day Years [...] Care Team (Late st Contact Info) Description 05/07/2025 10:00 AM EDT Office Visit [facility] [address] [place] [address] Nasrin Alvarenga MD [address] [place] [address] 09/01/2025 1:00 PM EST Office Visit [facility] ADULT DENTAL [address] [place] [address] Marita Quiroga Scheduled Referrals Name Type Priority Associated Diagnoses Orde r Schedule Referral to Physical Therapy Outpatient Referral Routine Left hip pain Chronic left-sided low back pain without sciatica Expected: 02/09/2025 (Approximate), Expires: 02/09/2026 documented as of this encounter Goals Goal Patient Goal Type Associated Problems Recent Progress Patient-Stated? Author Blood Pressure < 140/90 Blood Pressure 134/76(2024 8:42 AM EDT) No Davin Duckworth PharmD Hemoglobin A1c < 7 Result Component 7.3( 2:25 PM EDT) No Davin Duckworth PharmD documented as of this encounter Visit Diagnoses Diagnosis Left hip pain Pain in joint, pelvic region and thigh Chronic left-sided low back pain without sciatica documented in this encounter Additional Health Concerns Assessment Noted Time PHQ-9 Depression Total Score: 0 12/30/19 23 11:42 AM EDT documented as of this encounter Care Teams Caramel Candy Maker Helper Relationship Specialty Start Date End Date Nasrin Alvarenga MD [address] [place] [address] PCP - General Family Medicine 07/24/19 documented as of this encounter
[2025-05-04] MEDS: Diphth,Pertus(ACell),Tet Adult 0.5 ML SYRINGE IM (14:52)
[2025-05-04 15:00] VITALS: BP 154/57; PULSE 71; RESP 16; TEMP 36.9; O2SAT 99
== END 2025-05-04 15:00 | disposition home or self-care (01) ==
PROVIDERS: Emergency Provider Emergency Medicine; PCP Internal Medicine
DX: S91.311A Laceration without foreign body, right foot, initial encounter (principal); E11.9 Type 2 diabetes mellitus without complications; I10 Essential (primary) hypertension; Y93.9 Activity, unspecified; X58.XXXA Exposure to other specified factors, initial encounter; Y92.9 Unspecified place or not applicable; Y99.9 Unspecified external cause status; Z23 Encounter for immunization
CPT/HCPCS: 12001; 73630; 90471; 90715; 99282; 99284

== ENCOUNTER → 2025-05-04 13:43 | Outpatient (BNV) | payer MEDICARE, MEDICAID, SELFPAY | PROVIDERS: Emergency Provider Emergency Medicine; PCP Internal Medicine; Visit Provider Radiology Diagnostic Radiology | DX: I70.201 Unspecified atherosclerosis of native arteries of extremities, right leg (principal) | CPT/HCPCS: 73630 ==

== ENCOUNTER 2025-05-27 11:46 | Outpatient (REF) | payer OTHER, SELFPAY | END 2025-05-27 11:47 | disposition home or self-care (01) | LOC: HO.MAMMO 11:46 | PROVIDERS: PCP Internal Medicine; Visit Provider Internal Medicine | DX: Z12.31 Encounter for screening mammogram for malignant neoplasm of breast (principal) | CPT/HCPCS: 77063; 77067 ==

== ENCOUNTER → 2025-05-27 12:15 | Outpatient (BNV) | payer OTHER, SELFPAY | PROVIDERS: PCP Internal Medicine; Visit Provider Radiology Body Imaging | DX: Z12.31 Encounter for screening mammogram for malignant neoplasm of breast (principal) | CPT/HCPCS: 77063; 77067 ==

== ENCOUNTER 2025-08-17 09:25 | Outpatient (REF) | payer OTHER, SELFPAY ==
[2025-08-17 12:25] LABS: Microalbum/Creatinine Ratio Ur 36.6 ug/mg cr (<30)
[2025-08-17 13:11] LABS: Alanine Aminotransferase 14 U/L (0-31); Albumin Level 4.1 g/dL (3.5-5.0); Alkaline Phosphatase 87 U/L (39-117); Anion Gap 12 (12-20); Aspartate Amino Transferase 26 U/L (5-31); Blood Urea Nitrogen 34 mg/dL (9-16); Calcium 9.6 mg/dL (8.4-10.2); Carbon Dioxide 27 mmol/L (22-29); Chloride 106 mmol/L (96-108); Estimated Glomerular Filt Rate 49; Potassium 4.5 mmol/L (3.3-5.1); Sodium 140 mmol/L (135-145); Total Protein 7.4 g/dL (6.5-8.0)
== END 2025-08-17 09:26 | disposition home or self-care (01) ==
LOC: HO.HHCL 09:25
PROVIDERS: PCP Internal Medicine; Visit Provider Internal Medicine
DX: E11.42 Type 2 diabetes mellitus with diabetic polyneuropathy (principal); R63.5 Abnormal weight gain; Z79.4 Long term (current) use of insulin
CPT/HCPCS: 36415; 80053; 82043; 82570; 84443